=== PATIENT | female | born 1965 | race Caucasian/White ===

== ENCOUNTER 2021-11-07 17:53 | Outpatient (CLI) | payer OTHER, SELFPAY ==
--- NOTE | ~2021-11-07 | CT_ITS ---
EXAMINATION: CT sinus wo con DATE: 11/07/2021 18:22 INDICATION: Sinusitis TECHNIQUE: Computed tomography (CT) of the paranasal sinuses was performed without intravenous contra st. The dose-length product (DLP) was 329.94 mGy-cm. Iterative reconstruction was used. COMPARISON: None FINDINGS: There is normal development and pneumatization of the paranasal sinuses. There is minimal o pacification in the dependent aspect of the left sphenoid sinus. The frontal, ethmoid, and maxillary sinuses are clear. The bilateral ostiomeatal complexes are patent. Visualized soft tissues are unrema rkable. IMPRESSION: 1. Minimal opacification of the left sphenoid sinus. Reviewed, dictated and finalized at location B.
== END 2021-11-07 17:54 | disposition home or self-care (01) ==
PROVIDERS: PCP Family Medicine; Visit Provider Otolaryngology
DX: J32.9 Chronic sinusitis, unspecified (principal)
CPT/HCPCS: 70486

== ENCOUNTER 2022-01-17 07:50 | Outpatient (CLI) | payer OTHER, SELFPAY ==
--- NOTE | ~2022-01-17 | XR_ITS ---
XR hand LT 2V DATE: 01/17/2022 08:08 INDICATION: Dorsal hand and finger swelling TECHNIQUE: AP and lateral views COMPARISON: None FINDINGS: There is nonspecific soft tissue swelling. There is juxta articular osteopenia at the metac arpophalangeal and interphalangeal joints. There is narrowing at the interphalangeal joints and first metacarpophalangeal joint consistent with mild osteoarthritis. No erosive change is noted. No fracture or dislocation, periosteal reaction or bone destruction. No radiopaque soft tissue foreign body or subcutaneous emphysema. IMPRESSION: Nonspecific soft tissue swelling Mild osteoarthritis Reviewed, dictated and finalized at location A. EYOR OPERATOR
== END 2022-01-17 07:51 | disposition home or self-care (01) ==
PROVIDERS: PCP Family Medicine; Visit Provider Nurse Practitioner Family
DX: M79.89 Other specified soft tissue disorders (principal); M19.042 Primary osteoarthritis, left hand
CPT/HCPCS: 73120

== ENCOUNTER 2022-05-03 09:40 | Outpatient (CLI) | payer OTHER, SELFPAY ==
--- NOTE | ~2022-05-03 | NM_ITS ---
NUCLEAR MEDICINE CARDIAC GATED STRESS TEST: HISTORY: Hypertension. TECHNIQUE: Rest images were obtained following intravenous administration of 9.9 mCi Tc99m Tetrofosmi n. The patient was infused intravenously with Lexiscan (regadenoson). Then, 32.0 mCi Tc99m Tetrofosmi n was administered intravenously, and stress images were obtained. Data was reconstructed into short axis and horizontal and vertical long axis SPECT images. Gated SPECT images were also obtained. FINDINGS: There is an apparent small fixed defect at the cardiac apex region. No reversible lesion seen to sugg est ischemia. There is normal left ventricular wall motion. Left ventricular ejection fraction is 70%. IMPRESSION: No evidence for ischemia. Normal ejection fraction of 70%. Probable small prior myocardial infarction near the cardiac apex. Reviewed, dictated and finalized at [facility]. UNTING MANAGER CPA
--- NOTE | 2022-05-03 09:51 | EST_ITS ---
Patient Info Name: Vanessa Dennis Age: 57 years : 1965 Gender: Female Ht: 64 in Wt: 308 lbs BSA: 2.60 m2 HR: 52 bpm BP: 140 / 95 mmHg Heart Rhythm: Sinus Rhythm Exam Date: 05/03/2022 10:54 AM Exam Location: [facility] Stress Patient Status: Outpatient Admit Date: 05/03/2022 Staff Ordering Physician: Meme Paz NP Attending Provider: Glory Benjamin Exercise Technologist: Rosemary Maddox CT Exercise Physician: Sebastian Moore DO Exam Type: CA stress abelardo w NM Study Info Indications R06.02 - Shortness of breath I10 - Essential (primary) hypertension A regadenoson stress test was performed. Summary 1. 1. Negative lexiscan stress test for ischemic ST changes by ECG criteria. 2. 2. Baseline bradycardia. 3. 3. Nuclear scan to follow and will be reported separately. Please correlate with it. 4. 4. Patient informed of the above results. Protocol: Lexiscan Stress ECG Details Stage: REST Duration (min): 2 min : 45 sec HR (bpm): 52 SBP (mmHg): 140 DBP (mmHg): 95 Stage: REST Duration (min): 8 min : 26 sec HR (bpm): 47 SBP (mmHg): 140 DBP (mmHg): 95 Stage: STAGE 1 Duration (min): 1 min : 0 sec HR (bpm): 74 SBP (mmHg): 123 DBP (mmHg): 100 Stage: RECOVERY Duration (min): 1 min : 0 sec HR (bpm): 69 SBP (mmHg): 123 DBP (mmHg): 100 Stage: RECOVERY Duration (min): 2 min : 0 sec HR (bpm): 64 SBP (mmHg): 130 DBP (mmHg): 92 Stage: RECOVERY Duration (min): 2 min : 53 sec HR (bpm): 64 SBP (mmHg): 130 DBP (mmHg): 84 Rest HR: 47 bpm Peak HR: 76 bpm Rest Sys BP: 140 mmHg Peak Sys BP: 130 mmHg Max Pred HR: 164 bpm % Max Pred HR: 46 % Target HR: 139 bpm Max RPP: 9,880 bpm*mmHg Termination Reason: Completed protocol Cardiac Symptoms: Shortness of breath Total Time: 1 min : 0 sec Rest Trevino BP: 95 mmHg Peak Trevino BP: 92 mmHg Total Dose: 0.4 mg Resting ECG Sinus bradycardia, borderline ST -T wave in inferior leads. Stress ECG No ST changes. Arrhythmias None. Report Signatures
== END 2022-05-03 09:41 | disposition home or self-care (01) ==
PROVIDERS: PCP Family Medicine; Visit Provider Nurse Practitioner Family
DX: R06.02 Shortness of breath (principal); R00.1 Bradycardia, unspecified; I10 Essential (primary) hypertension
CPT/HCPCS: 78452; 93017; A9502; J2785

== ENCOUNTER → 2022-05-25 13:07 | Outpatient (CLI) | payer OTHER, SELFPAY ==
--- NOTE | ~2022-05-25 | MM_ITS ---
EXAMINATION: MM screening venus BI w ernesto HISTORY: Screening TECHNIQUE: Craniocaudal and mediolateral oblique 3-D tomosynthesis images were obtained and synthetic 2-D images were generated. CAD analysis was submitted and interpreted. COMPARISON: 02/03/2013 BREAST PARENCHYMAL COMPOSITION: The breasts are almost entirely fatty. FINDINGS: There is no evidence of suspicious mass, calcification, or architectural distortion to sugg est malignancy in either breast. There has been no suspicious interval change. IMPRESSION: 1. No mammographic evidence of malignancy. 2. Recommend routine screening mammography in one year. BI-RADS Category 1: Negative Reviewed, dictated and finalized at location A.
--- NOTE | ~2022-05-25 | DEXA_ITS ---
Bone Density Report Name: MARCOS READ Age: 57 Sex: Female Ethnicity: White Date of : 1965 Indication: postmenopausal; screening for osteoporosis; asthma or emphysema; Referring Provider: MARIN WILLAMS Study: Bone densitometry was performed. Exam Date: May 25, 2022 Accession number: [id number] Bone Density: Region BMD T-score Z-score Classification AP Spine (L1, L2, L3) 0.930 -0.8 0.3 Normal Femoral Neck (Left) 0.785 -0.6 0.5 Normal Total Hip (Left) 0.967 0.2 1.0 Normal Femoral Neck (Right) 0.827 -0.2 0.9 Normal Total Hip (Right) 0.992 0.4 1.2 Normal Total Hip Mean 0.980 0.3 1.1 Normal World Health Organization criteria for BMD impression classify patients as: Normal (T-score at or above -1.0), Osteopenia (T-score between -1.0 and -2.5), or Osteoporosis (T-score at or below -2.5). 10-year Fracture Risk: FRAX not reported because: All T-scores for Spine Total, Hip Total, Femoral Neck at or above -1.0 Clinical Information Provided by Patient: Has used the following medications: Vitamin D, Calcium Has the following medical conditions: Asthma or Emphysema Patient maximum height was 64 Menopause Age: 55 No regular weight bearing exercise Drinks caffeinated beverages Onset of menses at age 14 Number of children 2 Impression: The patient has normal bone mass. Discussion: BONE DENSITY IS ABOVE THE MINIMUM DESIRABLE LEVEL AT ALL SKELETAL SITES TESTED. This patient?s bone mineral density is above the minimum desirable level (T-score -1.0 or better) at all sites measured. The patient should follow a healthful lifestyle (good nutrition with adequate calcium and vitamin D, and appropriate weight-bearing exercise). Follow-Up: Consider repeating this study in 5 years or sooner if there is some new clinical indication. Reported by: DIETER on 05/25/2022 1:42:00 PM. Reviewed, dictated and finalized at location ADi SMITH
== END ==
PROVIDERS: PCP Family Medicine; Visit Provider Advanced Practice Midwife
DX: Z12.31 Encounter for screening mammogram for malignant neoplasm of breast (principal); M85.88 Other specified disorders of bone density and structure, other site
CPT/HCPCS: 77063; 77067; 77080

== ENCOUNTER 2022-07-29 14:30 | Emergency (ER) | payer OTHER, SELFPAY ==
--- NOTE | ~2022-07-29 | XR_ITS ---
EXAMINATION: XR chest 2V DATE: 07/29/2022 15:06 INDICATION: Shortness of breath TECHNIQUE: PA and lateral views of the chest were obtained. COMPARISON: Chest radiograph dated 11/23/2009 FINDINGS: The lungs remain clear with no focal airspace opacities, pulmonary edema, pleural effusion or pneumot horax. The cardiomediastinal silhouette is normal. Mild upper thoracic levocurvature with mild spondy losis. IMPRESSION: 1. No acute cardiopulmonary disease. Reviewed, dictated and finalized at location A.
--- NOTE | 2022-07-29 14:34 | ED.SOB ---
HPI - SOB/Dyspnea General Chief Complaint: Shortness of Breath/Dyspnea Stated Complaint: Shortness of Breath Time Seen by Provider: 07/29/22 14:35 Source: patient Mode of arrival: ambulatory Limitations: no limitations History of Present Illness HPI Narrative: Vanessa is a 57-year-old male patient presenting to the clinic today with complaints of shortness of breath, chest heaviness, and cough. She reports this has been going on for approximately 2 weeks. Was seen last week and placed on prednisone and azithromycin. States she has a history of asthma and thought that her asthma was flaring. States she is having increase in shortness of breath, chest heaviness, fatigue, unable to lay flat, and a cough. Reports that she finished her medicine and is not feeling any better. Has been taking at home nebulizer treatments without relief. Related Data Home Medications Medication Instructions Recorded Confirmed albuterol sulfate 1.25 mg/3 mL 1.25 mg inhalation Q4-6H PRN 06/19/21 07/29/22 solution for nebulization Shortness Of Breath Or Wheezing calcium carbonate 600 mg calcium 600 mg PO BID 06/19/21 07/29/22 (1,500 mg) tablet (Calcium) cetirizine 10 mg capsule (All Day 10 mg PO DAILY PRN Shortness Of 06/19/21 07/29/22 Allergy (cetirizine)) Breath Or Wheezing cyanocobalamin (vitamin B-12) 3,000 mcg PO DAILY 06/19/21 07/29/22 3,000 mcg capsule ergocalciferol (vitamin D2) 1,250 1,250 mcg PO WEEKLY 06/19/21 07/29/22 mcg (50,000 unit) capsule ferrous sulfate 140 mg (45 mg 140 mg PO DAILY 06/19/21 07/29/22 iron) tablet,extended release fluticasone propionate 50 1 spray intranasal DAILY 06/19/21 07/29/22 mcg/actuation nasal spray,suspension multivitamin 1 tablet PO DAILY 06/19/21 07/29/22 propylene glycol 0.6 % eye drops 1 drp EACH EYE DAILY PRN Shortness 06/19/21 07/29/22 (Systane Balance) Of Breath Or Wheezing black cohosh 540 mg capsule 20 mg PO DAILY 02/14/22 07/29/22 Allergies Allergy/AdvReac Type Severity Reaction Status Date / Time buprenorphine [From Buprenex] Allergy Intermediate hives, Verified 07/29/22 14:41 itching, vomitting Sulfa (Sulfonamide Allergy Unknown Unknown Verified 07/29/22 14:41 Antibiotics) sulfanilamide Allergy Unknown Unknown Verified 07/29/22 14:41 Review of Systems Review of Systems: Pertinent positives per HPI. Patient denies any fever, chills, rash, headache, visual changes, dizziness, cough, shortness of breath, chest pain, palpitations, nausea, vomiting, diarrhea, constipation, abdominal pain, or any urinary issues. [facility]LY [facility] Past Medical History Medical History Anemia COVID Fracture GERD (gastroesophageal reflux disease) Headache Hx of blood clots Vitamin D deficiency Surgical History Surgical History History of removal of ovarian cyst 1986 Hx laparoscopic cholecystectomy 1990 Hx of hernia repair 2015, 2019 Hx of right knee surgery 1986 Hx of tonsillectomy 1974 Hx of tubal ligation 2012 Family History Family History Sibling Uterine cancer Carcinoma of kidney Breast cancer Sibling Malignant neoplasm of prostate Heart disease Acute myocardial infarction Sibling Breast cancer Grandparent Diabetes mellitus Mother Cerebrovascular accident Daughter Depression Father No problems noted. Other Family history of arthritis Hypertension Social History Social History Smoking status: Never smoker Second hand tobacco smoke exposure: Yes Alcohol intake: current Alcohol use details: 2 per month Substance use: never Substance use type: does not use Lack of Transportation: No Lack of Food: Never True Current Housing: I Have Housing Concerned About
[2022-07-29 14:39] VITALS: BP 124/71; PULSE 60; RESP 20; TEMP 37.1; O2SAT 99
[2022-07-29] MEDS: IPRATROPIUM BR 0.02% INH SOLN 0.5 MG/2.5 ML VIAL INHALATION (14:41)
[2022-07-29] MEDS: ALBUTEROL SULFATE NEB 2.5 MG/3 ML INH INHALATION (14:41)
--- NOTE | 2022-07-29 14:49 | ECG_ITS ---
Measurements Intervals Newcomb Rate: 59 P: 18 SC: 163 QRS: -12 QRSD: 92 T: 24 QT: 429 QTc: 427 Interpretive Statements SINUS BRADYCARDIA POSSIBLE LEFT VENTRICULAR HYPERTROPHY BASELINE ARTIFACT- II, III, AVL, AVF BORDERLINE ECG NO PREVIOUS ECG AVAILABLE FOR COMPARISON Electronically Signed On 07-31-2022 15:38:58 CDT by Sebastian Moore D.O.
[2022-07-29 15:00] VITALS: O2SAT 99
--- NOTE | 2022-07-29 16:06 | PC.NURSE ---
Cardiovascular assessment normal. Patient in no cardiac distress. EKG shows no acute WI. Patient reports shortness of breath. Breathing treatment given- patient states she feels much better. No other issues at this time.
[2022-07-29 16:08] VITALS: O2SAT 99
== END 2022-07-29 16:00 | disposition home or self-care (01) ==
PROVIDERS: Emergency Provider Nurse Practitioner Family; PCP Family Medicine
DX: J45.901 Unspecified asthma with (acute) exacerbation (principal); K21.9 Gastro-esophageal reflux disease without esophagitis; E55.9 Vitamin D deficiency, unspecified
CPT/HCPCS: 71046; 93005; 94640; 99213; G0463

== ENCOUNTER 2023-02-09 13:28 | Emergency (ER) | payer OTHER, SELFPAY ==
--- NOTE | ~2023-02-09 | XR_ITS ---
EXAMINATION: XR chest 2V Exam Date/Time: 02/09/2023 14:41 RAT BREEDER HISTORY: cough Comparison: 07/21/2022. RESULT: Lines, tubes, and devices: None. Lungs and pleura: Minimal posterior costophrenic angle blunting, otherwise clear. Cardiomediastinal silhouette: Stable. Other: No acute osseous or upper abdominal finding. IMPRESSION: Possible trace bilateral pleural effusions. Reviewed, dictated and finalized at location K. BREEDER
[2023-02-09 14:03] VITALS: BP 147/89; PULSE 57; RESP 20; TEMP 37.5; O2SAT 97
--- NOTE | 2023-02-09 14:38 | ED.URI ---
HPI - URI/Sore Throat General Chief Complaint: Upper Respiratory Infection Stated Complaint: cough,congestion Source: patient Mode of arrival: ambulatory Limitations: no limitations History of Present Illness HPI Narrative: 58 y/o female with hx asthma presented for c/o worsening cough for 5 days. Also reports starting to feel shortness of breath with talking, and has sinus congestion, body aches, chills. Using albuterol and nebulizer since onset and started Mucinex, Nyquil and Dayquil. Tested negative for covid 2 days ago. Related Data Home Medications Medication Instructions Recorded Confirmed calcium carbonate 600 mg calcium 600 mg PO BID 06/19/21 02/09/23 (1,500 mg) tablet (Calcium) cyanocobalamin (vitamin B-12) 3,000 mcg PO DAILY 06/19/21 02/09/23 3,000 mcg capsule ergocalciferol (vitamin D2) 1,250 1,250 mcg PO WEEKLY 06/19/21 02/09/23 mcg (50,000 unit) capsule ferrous sulfate 140 mg (45 mg 140 mg PO DAILY 06/19/21 02/09/23 iron) tablet,extended release fluticasone propionate 50 1 spray intranasal DAILY 06/19/21 02/09/23 mcg/actuation nasal spray,suspension multivitamin 1 tablet PO DAILY 06/19/21 02/09/23 propylene glycol 0.6 % eye drops 1 drp EACH EYE DAILY PRN Shortness 06/19/21 02/09/23 (Systane Balance) Of Breath Or Wheezing black cohosh 540 mg capsule 20 mg PO DAILY 02/14/22 02/09/23 fexofenadine 180 mg tablet 180 mg PO DAILY 08/01/22 02/09/23 ([facility] Allergy) Allergies Allergy/AdvReac Type Severity Reaction Status Date / Time buprenorphine [From Buprenex] Allergy Intermediate hives, Verified 02/09/23 14:33 itching, vomitting Sulfa (Sulfonamide Allergy Unknown Unknown Verified 02/09/23 14:33 Antibiotics) sulfanilamide Allergy Unknown Unknown Verified 02/09/23 14:33 Review of Systems Review of Systems: CONSTITUTIONAL: Denies body aches, fever, chills, or sweats. EYES: Denies visual changes, redness, or discharge. ENT: Reports rhinorrhea, congestion, Denies sore throat, or otalgia. CARDIOVASCULAR: Denies chest pain, palpitations, or edema. RESPIRATORY: Reports cough, sob, denies wheezing. GASTROINTESTINAL: Denies abdominal pain, nausea, vomiting, or diarrhea. GENITOURINARY: Denies dysuria or hematuria. SKIN: Denies rash, itching, or wounds. MUSCULOSKELETAL: Denies back pain, joint pain, or myalgia. NEUROLOGIC: Denies headache, numbness, tingling, or weakness. All systems reviewed & are unremarkable except as noted in HPI and below PMFSH Past Medical History Medical History Anemia COVID Fracture GERD (gastroesophageal reflux disease) Headache Hx of blood clots Vitamin D deficiency Surgical History Surgical History History of removal of ovarian cyst 1986 Hx laparoscopic cholecystectomy 1990 Hx of hernia repair 2016, 2019 Hx of right knee surgery 1986 Hx of tonsillectomy 1974 Hx of tubal ligation 2012 Family History Family History Sibling Uterine cancer Carcinoma of kidney Breast cancer Sibling Malignant neoplasm of prostate Heart disease Acute myocardial infarction Sibling Breast cancer Grandparent Diabetes mellitus Mother Cerebrovascular accident Daughter Depression Father No problems noted. Other Family history of arthritis Hypertension Social History Social History Smoking status: Never smoker Second hand tobacco smoke exposure: Yes Alcohol intake: current Alcohol use details: 2 per month Substance use: never Substance use type: does not use Lack of Transportation: No Lack of Food: Never True Current Housing: I Have Housing Concerned About Future Housing: No Difficulty Paying Gas/Electric Bills: No Difficulty Paying for Meds: No Currently Un
== END 2023-02-09 15:30 | disposition home or self-care (01) ==
PROVIDERS: Emergency Provider Nurse Practitioner Family; PCP Family Medicine
DX: J40 Bronchitis, not specified as acute or chronic (principal); K21.9 Gastro-esophageal reflux disease without esophagitis; E55.9 Vitamin D deficiency, unspecified; Z86.16 Personal history of COVID-19
CPT/HCPCS: 71046; 99213; G0463

== ENCOUNTER 2023-05-20 11:30 | Outpatient (CLI) | payer OTHER, SELFPAY ==
[2023-05-20 12:46] LABS: Influenza A QL RT-PCR Negative (Negative); Influenza B QL RT-PCR Positive (Negative); RSV RNA, RT-PCR Negative (Negative); SARS-CoV-2 RNA PCR Negative (Negative)
== END 2023-05-20 11:31 | disposition home or self-care (01) ==
LOC: ANHLAB 11:31
PROVIDERS: PCP Family Medicine; Visit Provider Physician Assistant
DX: Z20.822 Contact with and (suspected) exposure to COVID-19 (principal)
CPT/HCPCS: 87637

== ENCOUNTER 2023-05-29 09:10 | Outpatient (CLI) | payer OTHER, SELFPAY ==
--- NOTE | 2023-06-01 20:58 | WPDPFTINT ---
PFT Procedure Performed PFT Procedure Performed Spirometry with Pre/Post Bronchodilator Plethysmography (Lung Vol) Diffusing Cap (DLCO) Flow Vol Loop PFT Interpretation DOS: 05/29/2023 REQUESTING: Sonia Astudillo PA-C REASON FOR TESTING: Asthma PULMONARY FUNCTION TESTS As of May 31, 2022, the Global Lung Initiative reference equations are used in interpretation of spirometry, lung volumes and diffusing capacity. Race and ethnicity are not included as variables in the interpretation strategy. Spirometry: The pre-bronchodilator FEV1 is 2.83 L, 109% predicted, normal. The pre-bronchodilator FVC is 3.93 L, 120%, normal. The FEV1/FVC ratio is 72%, normal. After bronchodilator, the FEV1 is 109%, 2.83 L, no change. The FVC is 115% predicted, 3.78 L, a 4% drop. The FEV1/FVC ratio is 75%. This is a non statistically significant change after bronchodilator. Lung volumes: The total lung capacity is 6.01 L, 118%, normal. The residual volume is 2.08 L, 108%, normal. The RV/TLC is 35%, normal. Airway resistance is 1.50, 58%. Diffusion: DLCO is 20.2, 92%, normal. The DLCO/VA is 4.09, 91%, normal. Flow volume loop: The flow volume loop is significant for absence of a peak during the expiratory limb. IMPRESSION: This study shows normal spirometry without airflow obstruction, normal lung volumes and normal diffusion. No prior studies for comparison. Kacie Cooper MD
== END 2023-05-29 09:11 | disposition home or self-care (01) ==
PROVIDERS: PCP Family Medicine; Visit Provider Physician Assistant
DX: J45.909 Unspecified asthma, uncomplicated (principal)
CPT/HCPCS: 94060; 94726; 94729

== ENCOUNTER 2023-06-03 07:11 | Outpatient (CLI) | payer OTHER, SELFPAY ==
--- NOTE | ~2023-06-03 | CT_ITS ---
EXAMINATION:CT diagnostic chest wo con DATE: 06/03/2023 08:03 INDICATION: Chronic bronchitis. TECHNIQUE: Computed tomography (CT) of the chest was performed without intravenous contrast. Automate d exposure control and iterative reconstruction technique were employed. The dose-length product (DLP ) was 856.95 mGy-cm. COMPARISON: None. FINDINGS: There is minimal atelectasis in left lung. There is a 3 mm nodule in left upper lobe, likel y benign. No pleural effusion. Cardiomegaly is noted. No pericardial effusion. There is a small slidi ng hiatal hernia. There are changes of cholecystectomy. There is a supraumbilical ventral hernia cont aining a wall of small bowel. There is mild thoracic spondylosis. IMPRESSION: 1. Small sliding hiatal hernia. 2. Supraumbilical ventral hernia containing a wall of nonobstructed small bowel. Reviewed, dictated and finalized at location A. IMPRESSION: 1. Small sliding hiatal hernia. 2. Supraumbilical ventral hernia containing a wall of nonobstructed small bowel .
== END 2023-06-03 07:12 | disposition home or self-care (01) ==
PROVIDERS: PCP Family Medicine; Visit Provider Physician Assistant
DX: J45.909 Unspecified asthma, uncomplicated (principal); J20.9 Acute bronchitis, unspecified; K44.9 Diaphragmatic hernia without obstruction or gangrene; K43.9 Ventral hernia without obstruction or gangrene
CPT/HCPCS: 71250

== ENCOUNTER 2023-10-21 09:31 | Outpatient (CLI) | payer OTHER, SELFPAY ==
--- NOTE | ~2023-10-21 | XR_ITS ---
XR knee LT min 4V Ordering provider: CR Alvarez History: . M25.569 - Pain in unspecified knee, GENERAL PAIN, NO INJURY . Comparison: July 27, 2011 FINDINGS: BONES: No acute fracture or dislocation. Old chip fracture in the area adjacent to the lateral tibial plateau is seen. Severe osteoarthritic changes of the patellofemoral joint. JOINT SPACES: Osteoarthritic changes with marginal spurs. SOFT TISSUES: Normal. IMPRESSION: No acute osseous abnormality left knee. Severe osteoarthritic changes of the patellofemoral joint. Mild osteoarthritic changes of the knee darin int Reviewed, dictated and finalized at location A. IMPRESSION: No acute osseous abnormality left knee. Severe osteoarthritic changes of the patellofemoral joint. Mild osteoarthritic changes of the knee joint
[2023-10-21 11:55] LABS: Vitamin D 25 Hydroxy 55.9 ng/mL
== END 2023-10-21 09:32 | disposition home or self-care (01) ==
PROVIDERS: PCP Family Medicine; Visit Provider Nurse Practitioner Family
DX: E55.9 Vitamin D deficiency, unspecified (principal); M17.12 Unilateral primary osteoarthritis, left knee
CPT/HCPCS: 36415; 73564; 82306

== ENCOUNTER 2023-11-21 11:42 | Outpatient (CLI) | payer OTHER, SELFPAY ==
--- NOTE | ~2023-11-21 | MM_ITS ---
EXAMINATION: MM screening venus BI w ernesto HISTORY: Screening mammogram, family history of breast cancer in her sister. TECHNIQUE: Craniocaudal and mediolateral oblique 3-D tomosynthesis images were obtained and synthetic 2-D images were generated. CAD analysis was submitted and interpreted. COMPARISON: 05/25/2022 BREAST PARENCHYMAL COMPOSITION:Not Dense. The breasts are almost entirely fatty FINDINGS: No suspicious mass, calcification, or architectural distortion are identified in either carlos ast to suggest malignancy. There has been no suspicious interval change. IMPRESSION: No mammographic evidence of malignancy. Recommend routine screening mammography in one year. BI-RADS Category 1: Negative Reviewed, dictated and finalized at location .
--- NOTE | ~2023-11-21 | XR_ITS ---
XR ribs BI 3V w CXR 2V Ordering provider: CR Alvarez History: . R07.81 - Pleurodynia . Comparison: None. FINDINGS: BONES: No acute rib fracture. MEDIASTINUM: The cardiac silhouette is not enlarged. LUNGS: No effusions or infiltrates. No pneumothorax. SOFT TISSUES: Normal. IMPRESSION: No acute osseous abnormality of the bilateral ribs. Reviewed, dictated and finalized at location A.
== END 2023-11-21 11:43 | disposition home or self-care (01) ==
LOC: MICIMG 11:43
PROVIDERS: PCP Family Medicine; Visit Provider Nurse Practitioner Family
DX: Z12.31 Encounter for screening mammogram for malignant neoplasm of breast (principal); R07.81 Pleurodynia
CPT/HCPCS: 71046; 71110; 77063; 77067

== ENCOUNTER 2024-09-30 09:44 | Outpatient (CLI) | payer OTHER, SELFPAY ==
--- OUTSIDE RECORDS SUMMARY | 2024-09-30 10:09 | XMS_ITS | Referral Summary ---
Author Organization [facility] Address [address] [place] [id number] Care Team Providers Care Water Resource Consultant Name Role Phone Tristen Porras MD Primary Care Provider [phone] Allergies Active Allergy Reactions Criticality Noted Date Comments Buprenorphine Hives Medium 08/12/2015 Phenylalanine Headache High 05/29/2021 Migraines Sulfa (Sulfonamide Antibiotics) Hives,Itching Medium Sulfasalazine Hives Medium 09/09/2017 Medications montelukast (SINGULAIR) 10 mg tablet 1 tablet (10 mg total) nightly [address] (PROTONIX) 40 mg EC tablet Take 1 tablet (40 mg total) by mouth nightly Active citalopram (CeleXA) 20 mg tablet Take 1 tablet (20 mg total) by mouth nightly Active dilTIAZem (CARDIZEM) 60 mg tablet Take 1 tablet (60 mg total) by mouth 4 (four) times a day Active fluticasone (FLOVENT HFA) 110 mcg/actuation inhaler Inhale 1 puff 2 (two) times a day Rinse mouth with water after use to reduce aftertaste and incidence of candidiasis. Do not swallow. Active albuterol (PROVENTIL,VENT HOMAR) 2.5 mg /3 mL (0.083 %) nebulizer solution 8 Active albuterol HFA (PROVENTIL HFA,VENTOLIN HFA,PROAIR HFA) 90 mcg/actuation inhaler Inhale 2 puffs 4 (four) times a day. 1 Inhaler 8 Active iron bisgly,ps-FA-B- C#12-succ 65 mg-65 mg -1,000 mcg (24) tablet Take by mouth Active cyanocobalamin (Vitamin B-12) 1,000 mcg tabletIndicatio ns:Prevention of Vitamin B12 Deficiency Take 1 tablet (1,000 mcg total) by mouth daily Active multivitamin capsule Take 1 capsule by mouth daily Active NOT IN DATABASE, PRESCRIPTION, CPAP 9 Active ipratropium-alb uteroL (DUO-NEB) 0.5-2.5 mg/3 mL nebulizer solution 3 Active calcium carbonate (OS-EARL) 1,250 mg (500 mg elemental) tablet Take 1 tablet (1,250 mg total) by mouth daily Active meloxicam (MOBIC) 15 mg tablet 3 Active ergocalciferol (VITAMIN D) 50,000 unit capsule Take 1 capsule (50,000 Units total) by mouth once a week 9 Active Active Problems Problem Noted Date Diagnosed Date Primary hypertension 02/28/2021 Primary insomnia 09/08/2020 Deep vein thrombosis (DVT) of lower extremity Menopause 08/13/2018 Pulmonary embolism 01/23/2018 Assessment & Plan (02/14/2018 12:44 PM MANAGER CASE): Diagnosed on 01/23/[address] chest (previous hospitalization) - continue therapeutic Lovenox Assessment & Plan (01/29/2018 11:06 AM MANAGER CASE): On therapeutic lovenox. - 01/27: therapeutic anti-Xa Will discharge home on therapeutic Lovenox BID until Dr. Brown feels it is OK to transition to oral anticoagulation. Her PCP office is aware of the PE and she will follow up with her PCP when discharged home. Class 3 severe obesity due to excess calories in adult 09/03/2017 Depression with anxiety 01/03/2015 SHERYL (obstructive sleep apnea) 11/30/2013 Vitamin B12 deficiency 09/11/2012 Irritable bowel syndrome 08/15/2012 Migraine 02/28/2012 Resolved Problems Problem Noted Date Diagnosed Date Resolved Date Foot pain, left 02/28/2021 09/06/2022 Chronic arthralgias of knees and hips 09/08/2020 09/06/2022 Keratosis 09/08/2020 09/06/2022 Ventral hernia without obstr uction or gangrene 06/18/2019 09/06/2022 Overview (06/18/2019): Added automatically from request for surgery [id number] Hair loss 05/06/2018 09/06/2022 Pain in both lower extremities 05/06/2018 09/06/2022 Cellulitis 04/15/2018 09/06/2022 Flank pain, acute 02/14/2018 09/06/2022 Back pain 02/14/2018 09/06/2022 Assessment & Plan (02/18/2018 8:29 AM MANAGER CASE): - suspected UTI & kidney stone -CT kidney stone protocol = findings concerning for pyelonephritis Urinary tract infection 02/14/201808/2022 Assessment & Plan (02/18/2018 8:31 AM MANAGER CASE): Diagnosed by her PCP & started on Cipro, initially on cefepime - UA & urine for culture -> no significant growth Converted to Macrobid x 5 days (total 7 days of antibiotics), WBC 8.0 on discharge & symptoms resolved SOB (shortness of breath) 01/23/2018 Assessment & Plan (01/26/2018 4:50 PM MANAGER CASE): Patient became acutely SOB on the morning of 01/23. Transferred to SICU. Diagnosed with PE. SOB now resolved. -CTM. Okay to transfer to floor Acute hypoxemic respiratory failure 01/23/2018 09/06/2022 Assessment & Plan (01/27/2018 10:47 AM MANAGER CASE): -weaned from 4 liters to 1 liter today -CXR without pulm edema 01/[address]: Pulmonary embolism in the right middle lobe pulmonary artery. Started on Lovenox BID therapeutic dosing. GVB wants her to discharge home on therapeutic Lovenox. Oliguria 01/22/2018 09/06/2022 Assessment & Plan (01/26/2018 4:50 PM MANAGER CASE): Low UOP o/n 01/20: cr 0.6-> 1.10, 500 mL bolus, increase IVF, f/u afternoon BMP 01/21 01/22: recheck BMP, urine electrolytes, flush Velázquez 01/23: IVF decreased due to SOB and possible pulm edema. UOP relatively unchanged. Resolved Acute postoperative pain 01/21/201808/2022 Assessment & Plan (01/29/2018 11:01 AM MANAGER CASE): -Epidural placed 01/20 -Dilaudid JACQUARD TWINE POLISHER OPERATOR -PO oxycodone, scheduled tylenol Low urine output 01/21/2018 01/22/2018 Assessment & Plan (01/21/2018 9:06 AM MANAGER CASE): Low UOP o/n 01/20: cr 0.6-> 1.10, 500 mL bolus, increase IVF, f/u afternoon BMP 01/21 Allergic rhinitis 09/09/2017 09/06/2022 Hearing deficit 08/02/2017 09/06/2022 Abdominal pain 10/24/2015 09/06/2022 Hernia of anterior abdominal wall 10/24/2015 09/06/2022 Overview (01/21/2018): S/p open ventral hernia repair / panniculectomy (01/20 [facility]) Assessment & Plan (01/29/2018 11:03 AM MANAGER CASE): 01/20: VHR, midline incison. SAUL R x1 SQ, SAUL L x1 SQ -NGT, IVFs 01/21: pain well-controlled, dressing with minimal shadowing, R SAUL 225 serosang / L SAUL 40 serosang / NG 15 thin bilious 01/22: pain well controlled, dressing to come down today, SAUL #1 476 ml, SUAL #2 106 ml, NGT 100 ml 01/23: pain well-controlled, unchanged SAUL output 01/25: +BMs, CLD 01/26: ADAT to fiber restricted, PO meds, electrolytes repleted 01/28 continues to have some nausea overnight and has no appetite. KUB pending. No BM recently, will give senna BID and a dulcolax suppository. 01/29: flatus(+), BM(+) last night. Minimal appetite, but eating small meals. She feels well today and will discharge home taking small frequent meals. She feels comfortable with this plan. Her low transverse incision is clean, catarino/sutures, no drainage, no erythema. SAUL x2. She will follow up with Dr. Brown on February 07. Anemia 11/10/2013 09/06/2022 Overview (09/06/2022): Last Assessment & Plan: - hgb of 6.9 02/16, s/p 1U pRBCs with appropriate response to 7.8 - no s/s active bleeding, likely a dilutional drop Assessment & Plan (02/18/2018 8:30 AM MANAGER CASE): - hgb of 6.9 02/16, s/p 1U pRBCs with appropriate response to 7.8 - no s/s active bleeding, likely a dilutional drop Bradycardia 11/06/2013 09/06/2022 Asthma 08/15/2012 09/06/2022 Esophagitis, reflux 08/15/2012 09/07/19 23 S/P repair of ventral hernia 09/06/2022 Assessment & Plan (02/18/2018 8:32 AM MANAGER CASE): S/P VHR on 2018 - continue SAUL to bulb suction, 135 mL output on 02/17 will keep in - ABD to lower transverse abdominal incision Social History Tobacco Use Types Packs/Day Years Used Date Smoking Tobacco: Never Smokeless Tobacco: Never Tobacco Cessation:Counseling Given: Not Answered Alcohol Use Standard Drinks/Week Comments Yes 1 (1 standard drink = 0.6 oz pur e alcohol) rare Comments No Sex and Gender Information Value Date Recorded Sex Assigned at Not on file Legal Sex Female 3:53 AM MANAGER CASE Gender Identity Not on file Sexual Orientation Not on file Last Filed Vital Signs Vital Sign Reading Time Taken Comments Blood Pressure 151/82 03/31/2024 10:22 AM MANAGER CASE Pulse 59 03/31/2024 10:22 AM MANAGER CASE Temperature 36.7 C (98.1 F) 03/31/2024 10:22 AM MANAGER CASE Respiratory Rate 16 03/31/2024 10:2 2 AM MANAGER CASE Oxygen Saturation 94% 03/31/2024 10: 22 AM MANAGER CASE Inhaled Oxygen Concentration - - Weight 140.3 kg (309 lb 3.2 oz) 025 10:22 AM MANAGER CASE Height 162.6 cm (5' 4) 03/31/2024 10:2 2 AM MANAGER CASE Body Mass Index 53.07 03/31/2024 10:22 AM MANAGER CASE Plan of Treatment Not on file Medical Devices Implanted Type Area Charter Coach Driver Device Identifier Shelf Expiration Date Model / Serial / Lot [employer] R Bard [id number] Ventralight St Sepra 10x8in Uncoated Monofilament Lightweight - [id number] - [id number] Implanted:Qty: 1 on 2018 by Karan Brown MD at [facility] Mesh N/A: Abdomen [employer] [id number] 12/29/2018 [id number] / [id number] / [id number] Insurance [facility] Advance Directives For more information, please contact: [phone] * Full Code (Latest Code Status on File) Date Activated Date Inactivated Comments 02/14/2018 12:48 PM 02/18/2018 2:29 PM * Full Code Date Activated Date Inactivated Comments 2018 5:37 PM 01/29/2018 6:53 PM Care Teams Water Resource Consultant Relationship Specialty Start Date End Date Tristen Porras MD PCP - General Family Medicine 05/23/22
--- OUTSIDE RECORDS SUMMARY | 2024-09-30 10:09 | XMS_ITS | Encounter Summary ---
Author Organization [facility] Address [address] [place] [address] Phone Care Team Providers Care Mines Inspector Name Role Phone Benny Armstrong MD Primary Care Provider Tristen Porras MD Primary Care Provider [phone] Encounter Details Date Type Department Care Team (Latest Contact Info) Description 05/03/2022 Orders Only [facility] Scanning, Provider Social History Tobacco Use Types Packs/Day Years Used Date Smoking Tobacco: Never Smokeless Tobacco: Never Alcohol Use Standard Drinks/Week Comments Yes 1 (1 standard drink = 0.6 oz pur e alcohol) rare Comments No Sex and Gender Information Value Date Recorded Sex Assigned at Not on file Legal Sex Female 3:53 AM BLOOD BANK ATTENDANT Gender Identity Not on file Sexual Orientation Not on file documented as of this encounter Plan of Treatment Not on file documented as of this encounter Procedures Procedure Name Priority Date/Time Associated Diagnosis Comments CARDIOLOGY DOCUMENT SCAN 05/03/2022 documented in this encounter Results * CARDIOLOGY DOCUMENT SCAN (05/03/2022) Anatomical Region Laterality Modality Other us Provider Scanning CV CARDIAC SERVICES PROCEDURES Final Result documented in this encounter Visit Diagnoses Not on filedocumented in this encounter Care Teams Mines Inspector Relationship Specialty [place] [address] [place] [address] PCP - General Internal Medicine 04/04/18 05/22/22 [place] [address] [place] [address] PCP - General Family Medicine 05/23/22 documented as of this encounter
--- OUTSIDE RECORDS SUMMARY | 2024-09-30 10:09 | XMS_ITS | Clinical Summary ---
Author Organization [facility] Address [address] [place] [address] Care Team Providers Care Data Modeler Name Role Phone Tristen Porras MD Primary Care Provider [phone] Allergies Active Allergy Reactions Criticality Noted Date [...] 01/23/2018 Assessment & Plan (02/14/2018 12:44 PM GATHERING WORKER): Diagnosed on 01/23/[address] chest (previous hospitalization) - continue therapeutic Lovenox Assessment & Plan (01/29/2018 11:06 AM GATHERING WORKER): On therapeutic lovenox. - 01/27: therapeutic anti-Xa [...] (06/18/2019): Added automatically from request for surgery [id number] Hair loss 05/06/2018 09/06/2022 Pain in both lower extremities 05/06/2018 09/06/2022 Cellulitis 04/15/2018 09/06/2022 Flank pain, acute 02/14/2018 09/06/2022 Back pain 02/14/2018 09/06/2022 Assessment & Plan (02/18/2018 8:29 AM GATHERING WORKER): - suspected UTI & kidney stone -CT kidney stone protocol = findings concerning for pyelonephritis Urinary tract infection 02/14/201808/2022 Assessment & Plan (02/18/2018 8:31 AM GATHERING WORKER): Diagnosed by her PCP & started on Cipro, initially on cefepime - UA & urine for culture -> no significant growth Converted to Macrobid x 5 days (total 7 days of antibiotics), WBC 8.0 on discharge & symptoms resolved SOB (shortness of breath) 01/23/2018 Assessment & Plan (01/26/2018 4:50 PM GATHERING WORKER): Patient became acutely SOB on the morning of 01/23. Transferred to SICU. Diagnosed with PE. SOB now resolved. -CTM. Okay to transfer to floor Acute hypoxemic respiratory failure 01/23/2018 09/06/2022 Assessment & Plan (01/27/2018 10:47 AM GATHERING WORKER): -weaned from 4 liters to 1 liter today -CXR without pulm edema 01/[address]: Pulmonary embolism in the right middle lobe pulmonary artery. Started on Lovenox BID therapeutic dosing. GVB wants her to discharge home on therapeutic Lovenox. Oliguria 01/22/2018 09/06/2022 Assessment & Plan (01/26/2018 4:50 PM GATHERING WORKER): Low UOP o/n 01/20: cr 0.6-> 1.10, 500 mL bolus, increase IVF, f/u afternoon BMP 01/21 01/22: recheck BMP, urine electrolytes, flush Velázquez 01/23: IVF decreased due to SOB and possible pulm edema. UOP relatively unchanged. Resolved Acute postoperative pain 01/21/201808/2022 Assessment & Plan (01/29/2018 11:01 AM GATHERING WORKER): -Epidural placed 01/20 -Dilaudid HEALTH CARE ASSISTANT -PO oxycodone, scheduled tylenol Low urine output 01/21/2018 01/22/2018 Assessment & Plan (01/21/2018 9:06 AM GATHERING WORKER): Low UOP o/n 01/20: cr 0.6-> 1.10, 500 mL bolus, increase IVF, f/u afternoon BMP 01/21 Allergic rhinitis 09/09/2017 09/06/2022 Hearing deficit 08/02/2017 09/06/2022 Abdominal pain 10/24/2015 09/06/2022 Hernia of anterior abdominal wall 10/24/2015 09/06/2022 Overview (01/21/2018): S/p open ventral hernia repair / panniculectomy (01/20 [facility]) Assessment & Plan (01/29/2018 11:03 AM GATHERING WORKER): 01/20: VHR, midline incison. SAUL R x1 SQ, SAUL L x1 SQ -NGT, IVFs 01/21: pain well-controlled, dressing with minimal shadowing, R SAUL 225 serosang / L SAUL 40 serosang / NG 15 thin bilious 01/22: pain well controlled, dressing to come down today, SAUL #1 476 ml, SAUL #2 106 ml, NGT 100 ml 01/23: [...] drop Assessment & Plan (02/18/2018 8:30 AM GATHERING WORKER): - hgb of 6.9 02/16, s/p 1U pRBCs with appropriate response to 7.8 - no s/s active bleeding, likely a dilutional drop Bradycardia 11/06/2013 09/06/2022 Asthma 08/15/2012 09/06/2022 Esophagitis, reflux 08/15/2012 09/07/19 23 S/P repair of ventral hernia 09/06/2022 Assessment & Plan (02/18/2018 8:32 AM GATHERING WORKER): S/P VHR on 2018 - continue SAUL to bulb suction, 135 mL output on 02/17 will keep in - ABD to lower transverse abdominal incision Surgical History Surgery Date Site/Laterality Comments HERNIA REPAIR TONSILLECTOMY as child OVARIAN CYST REMOVAL 03/04/1986 - 03/03/1987 LAPAROSCOPIC CHOLECYSTECTOMY 03/04/1990 - 03/03/1991 TUBAL LIGATION 03/04/2012 - 03/03/2013 Bilateral HERNIA REPAIR 03/04/2013 - 03/03/2014 ventral abdomenal wall ABDOMINAL SURGERY VENTRAL HERNIA REPAIR 01/02/2018 - 01/31/2018 Medical History Medical History Date Comments Anemia Asthma GERD (gastroesophageal reflux disease) IBS (irritable bowel syndrome) Migraine Sleep apnea PONV (postoperative nausea a nd vomiting) Delayed emergence from gener al anesthesia did not require intubation o r prolonged intubation or icu care Arthritis Motion sickness Primary hypertension 02/28/2021 Family History Medical History Relation Name Comments Bladder Cancer Brother Family histor y of malignant neoplasm of urinary bladder - (Added by TW Conv) Aneurysm Father Aneurysm - (Add ed by TW Conv) Emphysema Mother Emphysema lung - (Added by TW Conv) Breast cancer Sister 1 Family history of malignant neoplasm of breast - (Added by TW Conv) Uterine cancer Sister 2 Family histor y of malignant neoplasm of uterus - (Added by TW Conv) Diabetes Sister 3 Family history of diabetes mellitus - (Added by TW Conv) Anesthesia problems Neg Hx Relation Name Status Comments Brother Father Mother Sister 1 Sister 2 Sister 3 Social History Tobacco Use Types Packs/Day Years Used Date Smoking Tobacco: Never Smokeless Tobacco: Never Tobacco Cessation:Counseling Given: Not Answered Alcohol Use Standard Drinks/Week Comments Yes 1 (1 standard drink = 0.6 oz pur e alcohol) rare Comments No Sex and Gender Information Value Date Recorded Sex Assigned at Not on file Legal Sex Female 3:53 AM GATHERING WORKER Gender Identity Not on file Sexual Orientation Not on file Obstetrics History Last Filed Vital Signs Vital Sign Reading Time Taken Comments Blood Pressure 151/82 03/31/2024 10:22 AM GATHERING WORKER Pulse 59 03/31/2024 10:22 AM GATHERING WORKER Temperature 36.7 C (98.1 F) 03/31/2024 10:22 AM GATHERING WORKER Respiratory Rate 16 03/31/2024 10:2 2 AM GATHERING WORKER Oxygen Saturation 94% 03/31/2024 10: 22 AM GATHERING WORKER Inhaled Oxygen Concentration - - Weight 140.3 kg (309 lb 3.2 oz) 025 10:22 AM GATHERING WORKER Height 162.6 cm (5' 4) 03/31/2024 10:2 2 AM GATHERING WORKER Body Mass Index 53.07 03/31/2024 10:22 AM GATHERING WORKER Plan of Treatment Health Maintenance Due Date Last Done Comments Cervical Cancer Screening 1966 Colon Cancer Screening-Colonoscopy 1966 Depression Screening 1966 Hepatitis C Screening 1966 DTaP/Tdap/Td Vaccine (1 - Tdap) 1977 Hepatitis B Screening 01/21/1984 Regular Well Visit/Exam 18-64 01/21/1984 Zoster Vaccine (1 of 2) 01/21/2016 Breast Cancer Screening-Mammogram 01/14/2020 01/13/2019, 01/13/2019 Covid-19 Vaccine (4 - 2024-2 5 season) 2023 02/28/2021, 06/06/2020, 05/15/2020 Influenza Vaccine (#1) 2024 Pneumococcal vaccine <65 Aged Out No longer eligible based on patient's age to complete this topic Medical Devices Implanted Type Area Operations Manager Station Device Identifier Shelf Expiration Date Model / Serial / Lot [employer]/C R Bard [id number] Ventralight St Sepra 10x8in Uncoated Monofilament Lightweight - [id number] - [id number] Implanted:Qty: 1 on 2018 by Karan Brown MD at [facility] Mesh N/A: Abdomen [employer] [id number] 12/29/2018 [id number] / [id number] / [id number] Insurance [employer] [facility] [employer] [facility] Advance Directives For more information, please contact: [phone] * Full Code (Latest Code Status on File) Date Activated Date Inactivated Comments 02/14/2018 12:48 PM 02/18/2018 2:29 PM * Full Code Date Activated Date Inactivated Comments 2018 5:37 PM 01/29/2018 6:53 PM Care Teams Data Modeler Relationship Specialty Start Date End Date Tristen Porras MD PCP - General Family Medicine 05/23/22
--- OUTSIDE RECORDS SUMMARY | 2024-09-30 10:09 | XMS_ITS | Encounter Summary ---
Author Organization [facility] Address [address] [place] [address] Phone Care Team Providers Care Lubricating Engineer Name Role Phone Benny Armstrong MD Primary Care Provider Tristen Porras MD Primary Care Provider [phone] Encounter Details Date Type Department Care Team (Late st Contact Info) Description 02/28/2022 Orders Only [facility] Scanning, Provider Social History Tobacco Use Types Packs/Day Years Used Date Smoking Tobacco: Never Smokeless Tobacco: Never Alcohol Use Standard Drinks/Week Comments Yes 1 (1 standard drink = 0.6 oz pur e alcohol) rare Comments No Sex and Gender Information Value Date Recorded Sex Assigned at Not on file Legal Sex Female 3:53 AM IT SUPPORT ANALYST Gender Identity Not on file Sexual Orientation Not on file documented as of this encounter Plan of Treatment Not on file documented as of this encounter Procedures Procedure Name Priority Date/Time Associated Diagnosis Comments SCAN - LABS 02/28/2022 documented in this encounter Results * SCAN - LABS (02/28/2022) us Provider Scanning Final Result documented in this encounter Visit Diagnoses Not on filedocumented in this encounter Care Teams Lubricating Engineer Relationship Specialty Start [place] [address] [place] [address] PCP - General Internal Medicine 04/04/18 05/22/22 [place] [address] [place] [address] PCP - General Family Medicine 05/23/22 documented as of this encounter
[2024-09-30 10:26] LABS: Hematocrit 38.5 % (37.0-47.0); Hemoglobin 13.1 g/dL (12.0-15.0); Mean Corpuscular HGB Conc 34.0 g/dl (32-36); Mean Corpuscular Hemoglobin 32.3 pg (26-34); Mean Corpuscular Volume 95.1 fl (80-100); Platelet Count Result 237 k/mm3 (150-375); Red Blood Count 4.05 M/mm3 (4.2-5.4); White Blood Count 6.3 K/mm3 (4.5-10.0)
[2024-09-30 11:02] LABS: Alanine Aminotransferase 23 U/L (6-35); Albumin Level 4.1 g/dL (3.5-5.1); Alkaline Phosphatase 87 U/L (38-126); Anion Gap 5 mmol/L (4-12); Aspartate Amino Transferase 29 U/L (14-36); Bilirubin,Total 0.8 mg/dL (0.2-1.3); Blood Urea Nitrogen 23 mg/dL (7-17); Calcium 9.5 mg/dL (8.4-10.2); Carbon Dioxide 25 mmol/L (22-30); Chloride 109 mmol/L (98-107); Cholesterol 190 mg/dL (0-200); Estimated Glomerular Filt Rate > 60; Glucose 98 mg/dL (65-110); HDL Direct 44 mg/dL; Potassium 4.2 mmol/L (3.4-5.0); Sodium 139 mmol/L (137-145); Total Protein 6.6 g/dL (6.3-8.2); Triglycerides 90 mg/dL (<150)
[2024-09-30 11:05] LABS: Iron 124 ug/dL (37-170)
[2024-09-30 11:15] LABS: Percent Iron Saturation 41 % (20-50)
[2024-09-30 11:30] LABS: Thyroid Stimulating Hormone 0.519 uIU/mL (0.465-4.680)
[2024-09-30 12:07] LABS: Vitamin B12 > 1000.0 pg/mL (239-931)
== END 2024-09-30 09:45 | disposition home or self-care (01) ==
PROVIDERS: PCP Family Medicine; Visit Provider Nurse Practitioner Family
DX: E78.5 Hyperlipidemia, unspecified (principal); I10 Essential (primary) hypertension; F41.9 Anxiety disorder, unspecified; F32.A Depression, unspecified; E55.9 Vitamin D deficiency, unspecified; E61.1 Iron deficiency
CPT/HCPCS: 36415; 80053; 80061; 82306; 82607; 82746; 83540; 83550; 84443; 85027

== ENCOUNTER 2024-10-09 09:59 | Outpatient (CLI) | payer OTHER, SELFPAY ==
--- OUTSIDE RECORDS SUMMARY | 2024-10-09 10:03 | XMS_ITS | Clinical Summary ---
Author Organization [facility] Address [address] [place] [address] Care Team Providers Care Motorcycle Designer Name Role Phone Tristen Porras MD Primary Care Provider [phone] Allergies Active Allergy Reactions Criticality Noted Date Comments Buprenorphine Hives 08/12/2015 Phenylalanine Headache High 05/29/2021 Migraines Sulfa Antibiotics Hives,Itching Medium 09/09/2017 Sulfasalazine Hives Medium 09/09/2017 Medications cetirizine (ZYRTEC ALLERGY) 10 MG tablet Take 1 tablet by mouth daily. 08/03/19 18 Active B-12, Methylcobalamin, [address] 3,000 mcg under the tongue. Active CPAP MACHINEIndications :Obstructive sleep apnea syndrome Use CPAP as directed, nightly at HS 1 Device 04/02/19 19 Active aspirin 325 MG tablet Take 1 tablet (325 mg total) by mouth daily. 180 tablet 08/20/19 19 Active YUVAFEM 10 MCG vaginal tablet twice a week. 11/18/19 19 Active vitamin D2, ergocalciferol, 37953 UNITS capsule Take 50,000 Units by mouth once a week. 02/14/20 19 Active iron polysacch [id number] 150-0.025-1 MG Cap capsule Take 1 capsule by mouth daily. Active oyster shell calcium 500 mg, elemental, 500 MG tablet Take 1 tablet by mouth daily. Active PANTOPRAZOLE EC 40 MG tabletIndications: Esophagitis, reflux TAKE 1 TABLET DAILY 90 tablet 3 02/21/20 21 Active MONTELUKAST 10 MG tabletIndications: Allergic rhinitis, unspecified seasonality, unspecified trigger TAKE 1 TABLET DAILY 90 tablet 3 02/21/20 21 Active PROAIR HFA 108 (90 Base) MCG/ACT inhalerIndications :Moderate persistent asthma, unspecified whether complicated (HHS/HCC) USE 2 INHALATIONS FOUR TIMES A DAY 25.5 g 3 02/22/20 21 Active CITALOPRAM 20 MG tabletIndications: Depression with anxiety TAKE 1 TABLET DAILY 90 tablet 3 02/21/20 21 Active SUMAtriptan (IMITREX) 100 MG tabletIndications: Intractable migraine without aura and without status migrainosus Take 1 tablet (100 mg total) by mouth as needed for Migraine. May take 1/2 tablet or 1 tablet as needed at onset of migraine-may repeat in 2 hours 27 tablet 2 02/29/20 Active fluticasone (FLOVENT HFA) 110 MCG/ACT inhalerIndications :Moderate persistent asthma, unspecified whether complicated (HHS/HCC) Inhale 1 puff into the lungs 2 (two) times daily. 36 g 02/29/20 21 Active PARoxetine 10 MG tablet Take 10 mg by mouth every morning. Active albuterol (2.5 MG/3ML) 0.083% nebulizer solutionIndication s:Moderate persistent asthma, unspecified whether complicated (HHS/HCC) Take 3 mLs (2.5 mg total) by nebulization every 4 (four) hours. 360 mL 2 03/13/19 22 Active fluticasone propionate 50 MCG/ACT nasal sprayIndications:M oderate persistent asthma, unspecified whether complicated (HHS/HCC) 2 sprays by Nasal route daily. 48 g 1 03/13/19 22 Active DILTIAZEM 60 MG tabletIndications: Intractable headache, unspecified chronicity pattern, unspecified headache type TAKE 1 TABLET THREE TIMES A DAY 270 tablet 2 05/17/19 22 Active ondansetron (ZOFRAN ODT) 4 MG disintegrating tablet Take 1 tablet (4 mg total) by mouth every 8 (eight) hours as needed for Nausea. 15 tablet 05/26/19 22 Active mupirocin 2 % ointment 04/11/19 22 Active metoclopramide 10 MG tabletIndications: Nausea and vomiting, unspecified vomiting type Take One tab up to 4 times per day if needed . 20 tablet 05/30/19 22 Active Active Problems Problem Noted Date Diagnosed Date Foot pain, left 02/28/2021 Primary hypertension 02/28/2021 Chronic arthralgias of knees and hips 09/08/2020 Keratosis 09/08/2020 Primary insomnia 09/08/2020 Menopause 08/13/2018 Deep vein thrombosis (DVT) o f lower extremity, unspecified chronicity, unspecified laterality, unspecified vein ([facility]) 08/13/2018 Hair loss 05/06/2018 Allergic rhinitis 09/09/2017 Hearing deficit 08/02/2017 Depression with anxiety 01/03/2015 Morbid obesity 07/13/2014 Sleep apnea 11/30/2013 Anemia 11/10/2013 Overview (03/10/2018): Last Assessment & Plan: - hgb of 6.9 02/16, s/p 1U pRBCs with appropriate response to 7.8 - no s/s active bleeding, likely a dilutional drop Bradycardia 11/06/2013 Vitamin B12 deficiency 09/11/2012 Asthma ([facility]) 08/15/2012 Esophagitis, reflux 08/15/2012 Irritable bowel syndrome 08/15/2012 Headache, migraine 02/28/2012 Resolved Problems Problem Noted Date Diagnosed Date Resolved Date Acute laryngitis 06/02/2019 08/24/2020 BMI 45.0-49.9, adult 02/06/2019 021 BMI 45.0-49.9, adult 08/13/2018 021 Pain in both lower extremities 05/06/2018 08/13/2018 Bronchitis 04/02/2018 08/13/2018 Flank pain, acute 02/14/2018 08/13/2018 Backache 02/13/2018 08/13/2018 Overview (03/10/2018): Last Assessment & Plan: - suspected UTI & kidney stone -CT kidney stone protocol = findings concerning for pyelonephritis Acute cystitis without hematuria 02/13/2018 03/10/2018 Status post abdominal surgery, follow-up exam 02/06/20 18 08/13/2018 Acute hypoxemic respiratory failure ([facility]) 01/23/2018 08/13/2018 Overview (02/13/2018): Last Assessment & Plan: -weaned from 4 liters to 1 liter today -CXR without pulm edema 01/[address]: Pulmonary embolism in the right middle lobe pulmonary artery. Started on Lovenox BID therapeutic dosing. GEORGE wants her to discharge home on therapeutic Lovenox. Pulmonary embolism (CMS/HCC HHS/HCC) 01/23/2018 08/13/2018 Overview (03/10/2018): Last Assessment & Plan: On therapeutic lovenox. - 01/27: therapeutic anti-Xa Will discharge home on therapeutic Lovenox BID until Dr. Brown feels it is OK to transition to oral anticoagulation. Her PCP office is aware of the PE and she will follow up with her PCP when discharged home. Last Assessment & Plan: Diagnosed on 01/23/[address] chest (previous hospitalization) - continue therapeutic Lovenox Oliguria 01/22/2018 08/13/2018 Overview (02/13/2018): Last Assessment & Plan: Low UOP o/n 01/20: cr 0.6-> 1.10, 500 mL bolus, increase IVF, f/u afternoon BMP 01/21 01/22: recheck BMP, urine electrolytes, flush Velázquez 01/23: IVF decreased due to SOB and possible pulm edema. UOP relatively unchanged. Resolved Health care maintenance 10/13/201205/2021 Immunizations Immunization Administration Dates Next Due Fluzone 6 Months+ Quad (0.5 mL Prefilled Syringe) 03/30/2020(Deferred: Patient Refused) PFIZER COVID-19 (ORIGINAL FO RMULATION, PURPLE CAP) mRNA, LNP-S, PF, 30 MCG/0.3 ML DOSE 02/28/2021,06/06/2020,05/15/2020 Family History Medical History Relation Comments Cancer Brother brain aneurysm Father Hypertension Mother Cancer Sister uterus,breast Relation Status Comments Brother Father Mother Sister Social History Tobacco Use Types Packs/Day Years Used Date Smoking Tobacco: Never Smokeless Tobacco: Never Tobacco Cessation:Counseling Given: No Alcohol Use Standard Drinks/Week Comments Yes 0 (1 standard drink = 0.6 oz pur e alcohol) occasional PHQ-2 Answer Date Recorded PHQ-2 Score - If the patient scores above 3, please move on to questions 3-9 1 05/29/2021 Education Answer Date Recorded What is the highest level of school you have completed or the highest degree you have received? Some college, no degree 02/13/2018 Comments No Sex and Gender Information Value Date Recorded Sex Assigned at Not on file Legal Sex Female 11:36 PM CDT Gender Identity Not on file Sexual Orientation Not on file Last Filed Vital Signs Vital Sign Reading Time Taken Comments Blood Pressure 122/88 05/29/2021 1:38 PM CDT Pulse 52 05/29/2021 1:38 PM CDT Temperature 36.7 C (98 F) 05/29/2021 1:38 PM CDT Respiratory Rate 20 05/29/2021 1:38 PM CDT Oxygen Saturation 95% 05/29/2021 1:38 PM CDT Inhaled Oxygen Concentration - - Weight 133.1 kg (293 lb 6.4 oz) 05/29/2021 1:38 PM CDT Height 162.6 cm (5' 4) 05/29/2021 1:38 PM CDT Body Mass Index 50.36 05/29/2021 1:38 PM CDT Plan of Treatment Health Maintenance Due Date Last Done Comments Annual Physical 1969 Hepatitis C 01/21/1984 DTaP, Tdap and Td Vaccines ( 1 - Tdap) 1985 Hepatitis B Vaccines (1 of 3 - 19+ 3-dose series) 1985 Pneumococcal Vaccine: 50+ Years (1 of 2 - PCV) 1985 Cervical Cancer Screening Pa p with HPV Testing (Age 30 to 64) Every 5 Years 01/21/1996 Zoster Vaccines (1 of 2) 01/21/2016 Cervical Cancer Screening Pa p Smear (Age 30 to 64) Every 3 Years 12/18/2018 12/19/2015 Cervical Cancer Screening wi th HPV 12/18/2018 Mammogram Screening 01/13/2021 01/13/2019, 05/17/2016 COVID-19 Vaccine (2023-2 5 season) 2023 02/28/2021, 06/06/2020, 05/15/2020 PHQ-2 (Physician [place]) 03/04/2024 Colorectal Cancer Screening Colonoscopy (10 Years) 11/17/2028 11/17/2018, , Meningococcal B Vaccine Aged Out No l onger eligible based on patient's age to complete this topic Meningococcal Vaccine Aged Out No trupti gracie eligible based on patient's age to complete this topic RSV Immunizations Under 20 Months Aged Out No longer eligible b ased on patient's age to complete this topic Procedures Procedure Name Priority Date/Time Associated Diagnosis Comments MG SCREENING W SULLY MIRE[place] DIGI Routine 01/13/2019 12:30 PM SUPERVISOR SHUTTLE VENEERING Visit for screening mammogram COLONOSCOPY Routine 11/17/2018 9:31 AM CDT OUTSIDE CYTOPATH CERV/VAG INTERPRET (PAP) (SCAN ORDER) Routine 12/19/2015 12:00 AM CDT from Last 3 Months or Most Recently Relevant to Health Maintenance Results * MG SCREENING W SULLY [place]RE[place] DIGI (01/13/2019 12:30 PM SUPERVISOR SHUTTLE VENEERING) Anatomical Region Laterality Modality Breast Bilateral Mammography 01/13/2019 2:45 PM SUPERVISOR SHUTTLE VENEERING Narrative 01/13/2019 2:46 PM SUPERVISOR SHUTTLE VENEERING EXAMINATION: MG SCREENING W SULL[place]RE[place] DIGI WITH TOMOSYNTHESIS AND COMPUTER-AIDED DETECTION (CAD) DATE: 01/13/2019 12:11 PM COMPARISON STUDIES: 05/02/2016. CLINICAL HISTORY: Encounter for screening mammogram for malignant neoplasm of breast SCREENING family history breast CA: sisters FINDINGS: Bilateral CC, MLO, 2-D and 3-D acquisitions. Fatty replaced residual breast parenchyma. Similar in appearance and distribution to the previous exams. No evidence of dominant mass, architectural distortion, skin thickening, nipple retraction or suspicious clusters of microcalcifications. Benign calcifications redemonstrated. . CONCLUSION: 1. BI-RADS Category 2 - benign findings. Annual screening mammography recommended 2. TISSUE TYPE: Category A - The breasts are almost entirely fatty. MQSA BI-RADS Categories: Category 0 - needs additional imaging evaluation. Category 1 - negative. Category 2 - benign findings. Category 3 - probably benign findings, but short interval follow-up is recommended. Category 4 - suspicious abnormality and biopsy should be considered though the lesion may well be benign. Category 5 - highly suggestive of malignancy and appropriate action should be taken. A) A negative report should not delay a biopsy if a dominant or clinically suspicious mass is present. B) Adenosis and dense breasts may obscure an underlying neoplasm. C) Study interpreted with computer aided detection. Voice recognition software utilized. Interpreted By: Yung Elena, 01/13/2019 2:45 PM us Louise Dudley MD MAMMO Final Res ult * PAP SMEAR (12/19/2015 12:00 AM CDT) 12/19/2015 us Documents Scanned SCANNING [facility] * Colonoscopy ( SUPERVISOR SHUTTLE VENEERING) Narrative [facility] TO EPIC CONVERSION - SUPERVISOR SHUTTLE VENEERING Documented hx of procedure Procedure Note Vadim Chung MD - 01/05/2018 Documented hx of procedure us Generic Conversion Md [facility] GI PROCEDURE ORDERABLES Final Result [facility] TO EPIC CONVERSION from Last 3 Months or Most Recently Relevant to Health Maintenance Insurance [facility] Care Teams Motorcycle Designer Relationship Specialty Start Date End Date Tristen Porras MD [address] [place] [address] PCP - General FAMILY PRACTICE 04/18/22
--- OUTSIDE RECORDS SUMMARY | 2024-10-09 10:03 | XMS_ITS | Clinical Summary ---
Author Organization [facility] Address [address] [place] [id number] Care Team Providers Care Horse Buyer Name Role Phone Tristen Porras MD Primary Care Provider Allergies Active Allergy Reactions Criticality Noted Date [...] 01/23/2018 Assessment & Plan (02/14/2018 12:44 PM SAND MILL GRINDER): Diagnosed on 01/23/[address] chest (previous hospitalization) - continue therapeutic Lovenox Assessment & Plan (01/29/2018 11:06 AM SAND MILL GRINDER): On therapeutic lovenox. - 01/27: therapeutic anti-Xa [...] (06/18/2019): Added automatically from request for surgery [id number] Hair loss 05/06/2018 09/06/2022 Pain in both lower extremities 05/06/2018 09/06/2022 Cellulitis 04/15/2018 09/06/2022 Flank pain, acute 02/14/2018 09/06/2022 Back pain 02/14/2018 09/06/2022 Assessment & Plan (02/18/2018 8:29 AM SAND MILL GRINDER): - suspected UTI & kidney stone -CT kidney stone protocol = findings concerning for pyelonephritis Urinary tract infection 02/14/201808/2022 Assessment & Plan (02/18/2018 8:31 AM SAND MILL GRINDER): Diagnosed by her PCP & started on Cipro, initially on cefepime - UA & urine for culture -> no significant growth Converted to Macrobid x 5 days (total 7 days of antibiotics), WBC 8.0 on discharge & symptoms resolved SOB (shortness of breath) 01/23/2018 Assessment & Plan (01/26/2018 4:50 PM SAND MILL GRINDER): Patient became acutely SOB on the morning of 01/23. Transferred to SICU. Diagnosed with PE. SOB now resolved. -CTM. Okay to transfer to floor Acute hypoxemic respiratory failure 01/23/2018 09/06/2022 Assessment & Plan (01/27/2018 10:47 AM SAND MILL GRINDER): -weaned from 4 liters to 1 liter today -CXR without pulm edema 01/[address]: Pulmonary embolism in the right middle lobe pulmonary artery. Started on Lovenox BID therapeutic dosing. GVB wants her to discharge home on therapeutic Lovenox. Oliguria 01/22/2018 09/06/2022 Assessment & Plan (01/26/2018 4:50 PM SAND MILL GRINDER): Low UOP o/n 01/20: cr 0.6-> 1.10, 500 mL bolus, increase IVF, f/u afternoon BMP 01/21 01/22: recheck BMP, urine electrolytes, flush Velázquez 01/23: IVF decreased due to SOB and possible pulm edema. UOP relatively unchanged. Resolved Acute postoperative pain 01/21/201808/2022 Assessment & Plan (01/29/2018 11:01 AM SAND MILL GRINDER): -Epidural placed 01/20 -Dilaudid WATERSHED COORDINATOR -PO oxycodone, scheduled tylenol Low urine output 01/21/2018 01/22/2018 Assessment & Plan (01/21/2018 9:06 AM SAND MILL GRINDER): Low UOP o/n 01/20: cr 0.6-> 1.10, 500 mL bolus, increase IVF, f/u afternoon BMP 01/21 Allergic rhinitis 09/09/2017 09/06/2022 Hearing deficit 08/02/2017 09/06/2022 Abdominal pain 10/24/2015 09/06/2022 Hernia of anterior abdominal wall 10/24/2015 09/06/2022 Overview (01/21/2018): S/p open ventral hernia repair / panniculectomy (01/20 [facility]) Assessment & Plan (01/29/2018 11:03 AM SAND MILL GRINDER): 01/20: VHR, midline incison. SAUL R x1 [...] drop Assessment & Plan (02/18/2018 8:30 AM SAND MILL GRINDER): - hgb of 6.9 02/16, s/p 1U pRBCs with appropriate response to 7.8 - no s/s active bleeding, likely a dilutional drop Bradycardia 11/06/2013 09/06/2022 Asthma 08/15/2012 09/06/2022 Esophagitis, reflux 08/15/2012 09/07/19 23 S/P repair of ventral hernia 09/06/2022 Assessment & Plan (02/18/2018 8:32 AM SAND MILL GRINDER): S/P VHR on 2018 - continue SAUL [...] on file Legal Sex Female 3:53 AM SAND MILL GRINDER Gender Identity Not on file Sexual Orientation Not on file Obstetrics History Last Filed Vital Signs Vital Sign Reading Time Taken Comments Blood Pressure 151/82 03/31/2024 10:22 AM SAND MILL GRINDER Pulse 59 03/31/2024 10:22 AM SAND MILL GRINDER Temperature 36.7 C (98.1 F) 03/31/2024 10:22 AM SAND MILL GRINDER Respiratory Rate 16 03/31/2024 10:2 2 AM SAND MILL GRINDER Oxygen Saturation 94% 03/31/2024 10: 22 AM SAND MILL GRINDER Inhaled Oxygen Concentration - - Weight 140.3 kg (309 lb 3.2 oz) 025 10:22 AM SAND MILL GRINDER Height 162.6 cm (5' 4) 03/31/2024 10:2 2 AM SAND MILL GRINDER Body Mass Index 53.07 03/31/2024 10:22 AM SAND MILL GRINDER Plan of Treatment Health Maintenance Due Date [...] this topic Medical Devices Implanted Type Area Java Solutions Architect Device Identifier Shelf Expiration Date Model / Serial / Lot [employer]/C R Bard [id number] Ventralight St Sepra 10x8in Uncoated Monofilament Lightweight - [id number] - [id number] Implanted:Qty: 1 on 2018 by Karan Brown MD at [facility] Mesh N/A: Abdomen [employer]/C R Bard [id number] 12/29/2018 [id number] / [id number] / [id number] Insurance [employer] [facility] Fl[employer]omatic [facility] Advance Directives For more information, please contact: [phone] * Full Code (Latest Code Status on File) Date Activated Date Inactivated Comments 02/14/2018 12:48 PM 02/18/2018 2:29 PM * Full Code Date Activated Date Inactivated Comments 2018 5:37 PM 01/29/2018 6:53 PM Care Teams Horse Buyer Relationship Specialty Start Date End Date Tristen Porras MD PCP - General Family Medicine 05/23/22
--- OUTSIDE RECORDS SUMMARY | 2024-10-09 10:03 | XMS_ITS | Encounter Summary ---
Author Organization [facility] Address [address] [place] [address] Care Team Providers Care Greenhouse Manager Name Role Phone Benny Armstrong MD Primary Care Provider U Tristen Garza MD Primary Care Provider [phone] Encounter Details Date Type Department Care Team (Latest Contact Info) Description 09/18/2017 Abstract [facility] , Vadim Call MD Social History Tobacco Use Types Packs/Day Years Used Date Smoking Tobacco: Never Comments Unknown Sex and Gender Information Value Date Recorded Sex Assigned at Not on file Legal Sex Female 11:36 PM CDT Gender Identity Not on file Sexual Orientation Not on file documented as of this encounter Plan of Treatment Not on file documented as of this encounter Visit Diagnoses Not on filedocumented in this encounter Care Teams Greenhouse Manager Relationship Specialty Start Date End Date Benny Armstrong MD PCP - General INTERNAL MEDICINE 02/05/18 04/17/22 Tristen Porras MD [address] [address] PCP - General FAMILY PRACTICE 04/18/22 documented as of this encounter
--- OUTSIDE RECORDS SUMMARY | 2024-10-09 10:03 | XMS_ITS | Encounter Summary ---
Author Organization [facility] Address [address] [place] [address] Care Team Providers Care Air Launch Weapons Technician Name Role Phone Benny Armsrtong MD Primary Care Provider U Tristen Garza MD Primary Care Provider [phone] Encounter Details Date Type Department Care Team (Late st Contact Info) Description 01/19/2019 Results Notification [facility] Multispecialty Care - [facility] [address] [place] [id number] Shahram Bernardo MD [address] [place] [address] Social History Tobacco Use Types Packs/Day Years Used Date Smoking Tobacco: Never Smokeless Tobacco: Never Alcohol Use Standard Drinks/Week Comments Yes 0 (1 standard drink = 0.6 oz pur e alcohol) occasional Education Answer Date Recorded What is the [...] on filedocumented in this encounter Care Teams Air Launch Weapons Technician Relationship Specialty Start Date End Date Benny Armstrong MD PCP - General INTERNAL MEDICINE 02/05/18 04/17/22 Tristen Porras MD [address] [place], [place] [id number] PCP - General FAMILY PRACTICE 04/18/22 documented as of this encounter
--- OUTSIDE RECORDS SUMMARY | 2024-10-09 10:03 | XMS_ITS | Encounter Summary ---
Author Organization [facility] Address [address] [place] [address] Phone Care Team Providers Care Machine Striper Name Role Phone Benny Armstrong MD Primary Care Provider Tristen Porras MD Primary Care Provider [phone] Encounter Details Date Type Department Care Team [...] on file Legal Sex Female 3:53 AM UNIFIED COMMUNICATIONS ENGINEER Gender Identity Not on file Sexual Orientation [...] on filedocumented in this encounter Care Teams Machine Striper Relationship Specialty [place] [address] [place] [address] PCP - General Internal Medicine 04/04/18 05/22/22 [place] [address] [place] [address] PCP - General Family Medicine 05/23/22 documented as of this encounter
--- OUTSIDE RECORDS SUMMARY | 2024-10-09 10:03 | XMS_ITS | Encounter Summary ---
Author Organization [facility] Address [facility] [place] [address] Care Team Providers Care Policy Change Clerk Name Role Phone Benny Armstrong MD Primary Care Provider U Tristen Garza MD Primary Care Provider [phone] Encounter Details Date Type Department Care Team (Late st Contact Info) Description 02/20/2019 HidInImage Message Enc [facility] Family & Internal Medicine [address] [address] Tish Davila, RN Blood work Social History Tobacco Use Types Packs/Day Years Used Date Smoking Tobacco: Never Smokeless Tobacco: Never Alcohol Use Standard Drinks/Week Comments Yes 0 (1 standard drink = 0.6 oz pur e alcohol) occasional PHQ-2 Answer Date Recorded PHQ-2 Score 0 01/28/2019 Education Answer Date Recorded What is the [...] on filedocumented in this encounter Care Teams Policy Change Clerk Relationship Specialty Start Date End Date Benny Armstrong MD PCP - General INTERNAL MEDICINE 02/05/18 04/17/22 Tristen Porras MD [address] [address] PCP - General FAMILY PRACTICE 04/18/22 documented as of this encounter
--- OUTSIDE RECORDS SUMMARY | 2024-10-09 10:03 | XMS_ITS | Encounter Summary ---
Author Organization [facility] Address [address] [place] [address] Phone Care Team Providers Care Bass Viol Repairer Name Role Phone Benny Amrstrong MD Primary Care Provider Tristen Porras MD Primary Care Provider [phone] Encounter Details Date Type Department Care Team [...] on file Legal Sex Female 3:53 AM TAPE CONTROLLED MACHINE STITCHER Gender Identity Not on file Sexual Orientation [...] on filedocumented in this encounter Care Teams Bass Viol Repairer Relationship Specialty [place] [address] [place] [address] PCP - General Internal Medicine 04/04/18 05/22/22 [place] [address] [place] [address] PCP - General Family Medicine 05/23/22 documented as of this encounter
--- OUTSIDE RECORDS SUMMARY | 2024-10-09 10:03 | XMS_ITS | Encounter Summary ---
Author Organization [facility] Address [address] [place] [address] Care Team Providers Care Retail Sales Associate Bilingual Name Role Phone Benny Armstrong MD Primary Care Provider U Tristen Garza MD Primary Care Provider [phone] Encounter Details Date Type Department Care Team (Late st Contact Info) Description 09/20/2020 Operative Mind Message Enc [facility] Family & Internal Medicine [address] [address] [facility], [facility] Provider referral Social History Tobacco Use Types Packs/Day Years Used Date Smoking Tobacco: Never Smokeless Tobacco: Never Alcohol Use Standard Drinks/Week Comments Yes 0 (1 standard drink = 0.6 oz pur e alcohol) occasional PHQ-2 Answer Date Recorded PHQ-2 Score - If the patient scores above 3, please move on to questions 3-9 0 03/30/2020 Education Answer Date Recorded What is the highest level of school you have completed or the highest degree you have received? Some college, no degree 02/13/2018 Comments No Sex and Gender Information Value Date Recorded Sex Assigned at Not on file Legal Sex Female 11:36 PM CDT Gender Identity Not on file Sexual Orientation Not on file COVID-19 Exposure Response Date Recorded In the last month, have you been in contact with someone who was confirmed or suspected to have Coronavirus / COVID-19? No / Unsure 08/24/2020 1:46 PM CDT documented as of this encounter Plan of Treatment Not on file documented as of this encounter Visit Diagnoses Not on filedocumented in this encounter Care Teams Retail Sales Associate Bilingual Relationship Specialty Start Date End Date Benny Armstrong MD PCP - General INTERNAL MEDICINE 02/05/18 04/17/22 Tristen Porras MD [address] [place] [address] PCP - General FAMILY PRACTICE 04/18/22 documented as of this encounter
== END 2024-10-09 10:00 | disposition home or self-care (01) ==
LOC: ANHAUDASC 10:00
PROVIDERS: PCP Family Medicine; Visit Provider Nurse Practitioner Family
DX: Z97.4 Presence of external hearing-aid (principal); H90.3 Sensorineural hearing loss, bilateral
CPT/HCPCS: 92557; 92567

== ENCOUNTER 2024-11-09 13:57 | Outpatient (CLI) | payer OTHER, SELFPAY ==
--- OUTSIDE RECORDS SUMMARY | 2024-11-09 14:01 | XMS_ITS | Clinical Summary ---
Author Organization [facility] Address [address] [place] [address] Care Team Providers Care Painter Barrel Name Role Phone Tristen Porras MD Primary Care Provider [phone] Allergies Active Allergy Reactions Criticality Noted Date [...] times a day. 1 Inhaler 8 Active Additional Information Patient not taking.Reported on 10/30/2024 iron bisgly,ps-FA-B- C#12-succ 65 mg-65 mg -1,000 [...] by mouth once a week 9 Active diclofenac (CATAFLAM) 50 mg tablet Take 1 tablet (50 mg total) by mouth 2 (two) times a day Active busPIRone (BUSPAR) 10 mg tabletIndicatio ns:Generalized Anxiety Disorder Take 1 tablet (10 mg total) by mouth 2 (two) times a day Active albuterol sulfate/budeson costa (AIRSUPRA INHAL) Inhale Active black cohosh 200 mg capsule Take 45 mg by mouth once Active SEMAGLUTIDE, WEIGHT LOSS, SUBQ Inject 1 Units under the skin once a week Active fluticasone propion-salmete roL (ADVAIR DISKUS) 100-50 mcg/dose diskus inhaler Inhale 2 puffs 2 (two) times a day Rinse mouth with water after use. Do not swallow. Active busPIRone (BUSPAR) 10 mg tabletIndicatio ns:Generalized Anxiety Disorder Take 1 tablet (10 mg total) by mouth 3 (three) times a day Active magnesium glycinate 100 mg tablet Take 200 mg by mouth once Active peg 400-propylene glycol (SYSTANE) 0.4-0.3 % ophthalmic solution Administer 1 drop into both eyes as needed Active Active Problems Problem Noted Date Diagnosed Date Primary hypertension 02/28/2021 Primary insomnia 09/08/2020 Deep vein thrombosis (DVT) of lower extremity Menopause 08/13/2018 Pulmonary embolism 01/23/2018 Assessment & Plan (02/14/2018 12:44 PM GELATIN POWDER MIXER): Diagnosed on 01/23/[address] chest (previous hospitalization) - continue therapeutic Lovenox Assessment & Plan (01/29/2018 11:06 AM GELATIN POWDER MIXER): On therapeutic lovenox. - 01/27: therapeutic anti-Xa [...] (06/18/2019): Added automatically from request for surgery [id number] Hair loss 05/06/2018 09/06/2022 Pain in both lower extremities 05/06/2018 09/06/2022 Cellulitis 04/15/2018 09/06/2022 Flank pain, acute 02/14/2018 09/06/2022 Back pain 02/14/2018 09/06/2022 Assessment & Plan (02/18/2018 8:29 AM GELATIN POWDER MIXER): - suspected UTI & kidney stone -CT kidney stone protocol = findings concerning for pyelonephritis Urinary tract infection 02/14/2018 07/08/2022 Assessment & Plan (02/18/2018 8:31 AM GELATIN POWDER MIXER): Diagnosed by her PCP & started on Cipro, initially on cefepime - UA & urine for culture -> no significant growth Converted to Macrobid x 5 days (total 7 days of antibiotics), WBC 8.0 on discharge & symptoms resolved SOB (shortness of breath) 01/23/2018 Assessment & Plan (01/26/2018 4:50 PM GELATIN POWDER MIXER): Patient became acutely SOB on the morning of 01/23. Transferred to SICU. Diagnosed with PE. SOB now resolved. -CTM. Okay to transfer to floor Acute hypoxemic respiratory failure 01/23/2018 09/06/2022 Assessment & Plan (01/27/2018 10:47 AM GELATIN POWDER MIXER): -weaned from 4 liters to 1 liter today -CXR without pulm edema 01/[address]: Pulmonary embolism in the right middle lobe pulmonary artery. Started on Lovenox BID therapeutic dosing. GEORGE wants her to discharge home on therapeutic Lovenox. Oliguria 01/22/2018 09/06/2022 Assessment & Plan (01/26/2018 4:50 PM GELATIN POWDER MIXER): Low UOP o/n 01/20: cr 0.6-> 1.10, 500 mL bolus, increase IVF, f/u afternoon BMP 01/21 01/22: recheck BMP, urine electrolytes, flush Velázquez 01/23: IVF decreased due to SOB and possible pulm edema. UOP relatively unchanged. Resolved Acute postoperative pain 01/21/201808/2022 Assessment & Plan (01/29/2018 11:01 AM GELATIN POWDER MIXER): -Epidural placed 01/20 -Dilaudid LEASING ASSISTANT -PO oxycodone, scheduled tylenol Low urine output 01/21/2018 01/22/2018 Assessment & Plan (01/21/2018 9:06 AM GELATIN POWDER MIXER): Low UOP o/n 01/20: cr 0.6-> 1.10, 500 mL bolus, increase IVF, f/u afternoon BMP 01/21 Allergic rhinitis 09/09/2017 09/06/2022 Hearing deficit 08/02/2017 09/06/2022 Abdominal pain 10/24/2015 09/06/2022 Hernia of anterior abdominal wall 10/24/2015 09/06/2022 Overview (01/21/2018): S/p open ventral hernia repair / panniculectomy (01/20 Stephanie) Assessment & Plan (01/29/2018 11:03 AM GELATIN POWDER MIXER): 01/20: VHR, midline incison. SAUL R x1 [...] Assessment & Plan: - hgb of 6.9 /, s/p 1U pRBCs with appropriate response to 7.8 - no s/s active bleeding, likely a dilutional drop Assessment & Plan (02/18/2018 8:30 AM GELATIN POWDER MIXER): - hgb of 6.9 /16, s/p 1U pRBCs with appropriate response to 7.8 - no s/s active bleeding, likely a dilutional drop Bradycardia 11/06/2013 09/06/2022 Asthma 08/15/2012 09/06/2022 Esophagitis, reflux 08/15/2012 09/07/19 23 S/P repair of ventral hernia 09/06/2022 Assessment & Plan (02/18/2018 8:32 AM GELATIN POWDER MIXER): S/P VHR on 2018 - continue SAUL to bulb suction, 135 mL output on 02/17 will keep in - ABD to lower transverse abdominal incision Encounters Date Type Department Care Team Description 10/30/2024 9:00 AM CDT Office Visit [facility] Medicine Surgery [address] [facility] [address] [place] [address] [place] [address] Karan Brown MD Ventral hernia without obstruction or gangrene (Primary Dx); S/P repair of ventral hernia; Class 3 severe obesity due to excess calories with serious comorbidity in adult, unspecified BMI; Constipation, unspecified constipation type 10/30/2024 7:40 AM CDT - 10/30/2024 11:59 PM CDT Hospital Encounter [facility] [address] [place] [address] Karan Brown MD Ventral hernia without obstruction or gangrene Discharge Disposition: Discharge to home or self care from Last 3 Months Surgical History Surgery Date Site/Laterality Comments HERNIA [...] on file Legal Sex Female 3:53 AM GELATIN POWDER MIXER Gender Identity Not on file Sexual Orientation Not on file Obstetrics History Last Filed Vital Signs Vital Sign Reading Time Taken Comments Blood Pressure 131/84 10/30/2024 8:57 AM CDT Pulse 56 10/30/2024 8:57 AM CDT Temperature 36.7 C (98 F) 10/30/2024 8:57 AM CDT Respiratory Rate 13 10/30/2024 8:57 AM CDT Oxygen Saturation 97% 10/30/2024 8:57 AM CDT Inhaled Oxygen Concentration - - Weight 135.3 kg (298 lb 3.2 oz) 10/30/2024 8:57 AM CDT Height 162.6 cm (5' 4) 10/30/2024 8:57 AM CDT Body Mass Index 51.19 10/30/2024 8:57 AM CDT Plan of Treatment Health Maintenance Due Date Last Done Comments Cervical Cancer Screening 1966 Colon Cancer Screening-Colonoscopy 1966 Depression Screening 1966 Hepatitis C Screening 1966 DTaP/Tdap/Td Vaccine (1 - Tdap) 1977 Hepatitis B Screening 01/21/1984 Regular Well Visit/Exam 18-64 01/21/1984 Pneumococcal vaccine <65 (1 of 2 - PCV) 1985 Zoster Vaccine (1 of 2) 01/21/2016 Breast Cancer Screening-Mammogram 01/14/2020 019, 01/13/2019 Covid-19 Vaccine ( season) 2024 02/28/2021, 06/06/2020, 05/15/2020 Influenza Vaccine (#1) 2024 Medical Devices Implanted Type Area Awning Installer Device Identifier Shelf Expiration Date Model / Serial / Lot [employer] R Bard [id number] Ventralight St Sepra 10x8in Uncoated Monofilament Lightweight - [id number] - [id number] Implanted:Qty: 1 on 2018 by Karan Brown MD at [facility] Mesh N/A: Abdomen [employer] [id number] 12/29/2018 [id number] / [id number] / [id number] Procedures Procedure Name Priority Date/Time Associated Diagnosis Comments CT ABDOMEN PELVIS W CONTRAST Schedule Routine, Read Routine (OP Routine) 10/30/2024 8:51 AM CDT Ventral hernia without obstruction or gangrene from Last 3 Months Results * CT abdomen pelvis with contrast (10/30/2024 8:51 AM CDT) Anatomical Region Laterality Modality Body N/A Computed Tomogra phy 10/30/2024 9:08 AM CDT Impressions 10/30/2024 9:36 AM CDT Unchanged ventral hernia containing a loop of small bowel without evidence of obstruction. Dictated by: Jules Patel M.D. (Ramanan) The radiology attending physician has personally reviewed this study, and had reviewed and/or edited this written report and agrees with it. Electronically signed by: Jamal Marie M.D. Narrative 10/30/2024 9:36 AM CDT EXAMINATION: Computed tomography of the abdomen and pelvis with intravenous contrast HISTORY: 59-year-old female with recurrent abdominal wall hernia. Had a prior ventral hernia repair and panniculectomy in 2019. TECHNIQUE: Transaxial computed tomographic images of the abdomen and pelvis were obtained with intravenous contrast according to the standard protocol after the uneventful administration of 120 mL Opti-Ray 350 intravenous contrast. COMPARISON: 03/31/2024 CT FINDINGS: The imaged lung bases are clear. No pleural effusion. Mild cardiomegaly. No pericardial effusion. Small hiatal hernia. Left Bochdalek hernia. The liver is normal. Postsurgical changes of cholecystectomy. The spleen is normal. The kidneys enhance symmetrically without hydronephrosis. The adrenals are normal. The pancreas is normal. No biliary ductal dilatation. There is contrast material throughout the stomach and small bowels. No pneumoperitoneum. The bladder is distended with fluid. The uterus is present. The small and large bowels are normal in course and caliber. The appendix is present. The origins of the celiac and superior and inferior mesenteric arteries are normal. The portal and splenic veins are patent. No abdominal or pelvic lymphadenopathy. There is a small ventral hernia containing a loop of small bowel without evidence of bowel obstruction (series 2, image 113). The opening of the hernia measures 2.5 cm, not significantly changed from the prior exam. No other ventral hernias are noted. Postsurgical changes of prior ventral hernia repair. Mild multilevel degenerative disc disease. No suspicious osseous lesions. Procedure Note Jamal Marei MD - 10/30/2024 EXAMINATION: Computed tomography of the abdomen and pelvis with intravenous contrast HISTORY: 59-year-old female with recurrent abdominal wall hernia. Had a prior ventral hernia repair and panniculectomy in 2019. TECHNIQUE: Transaxial computed tomographic images of the abdomen and pelvis were obtained with intravenous contrast according to the standard protocol after the uneventful administration of 120 mL Opti-Ray 350 intravenous contrast. COMPARISON: 03/31/2024 CT FINDINGS: The imaged lung bases are clear. No pleural effusion. Mild cardiomegaly. No pericardial effusion. Small hiatal hernia. Left Bochdalek hernia. The liver is normal. Postsurgical changes of cholecystectomy. The spleen is normal. The kidneys enhance symmetrically without hydronephrosis. The adrenals are normal. The pancreas is normal. No biliary ductal dilatation. There is contrast material throughout the stomach and small bowels. No pneumoperitoneum. The bladder is distended with fluid. The uterus is present. The small and large bowels are normal in course and caliber. The appendix is present. The origins of the celiac and superior and inferior mesenteric arteries are normal. The portal and splenic veins are patent. No abdominal or pelvic lymphadenopathy. There is a small ventral hernia containing a loop of small bowel without evidence of bowel obstruction (series 2, image 113). The opening of the hernia measures 2.5 cm, not significantly changed from the prior exam. No other ventral hernias are noted. Postsurgical changes of prior ventral hernia repair. Mild multilevel degenerative disc disease. No suspicious osseous lesions. IMPRESSION: Unchanged ventral hernia containing a loop of small bowel without evidence of obstruction. Dictated by: Jules Patel M.D (Ramanan). The radiology attending physician has personally reviewed this study, and had reviewed and/or edited this written report and agrees with it. Electronically signed by: Jamal Marie M.D. Karan Tony Brown MD IMG CT PROCEDURES Fi nal Result from Last 3 Months Insurance [facility] Advance Directives For more information, please contact: [phone] * Full Code (Latest Code Status on File) Date Activated Date Inactivated Comments 02/14/2018 12:48 PM 02/18/2018 2:29 PM * Full Code Date Activated Date Inactivated Comments 2018 5:37 PM 01/29/2018 6:53 PM Care Teams Painter Barrel Relationship Specialty Start Date End Date Tristen Porras MD PCP - General Family Medicine 05/23/22
--- OUTSIDE RECORDS SUMMARY | 2024-11-09 14:01 | XMS_ITS | Encounter Summary ---
Author Organization [facility] Address [address] [place] [address] Phone Care Team Providers Care Industrial Sales Representative Name Role Phone Benny Armstrong MD Primary Care Provider Tristen Porras MD Primary Care Provider [phone] Encounter Details Date Type Department Care Team [...] on file Legal Sex Female 3:53 AM MANUFACTURING WORKER Gender Identity Not on file Sexual [...] on filedocumented in this encounter Care Teams Industrial Sales Representative Relationship Specialty [place] [address] [place] [address] PCP - General Internal Medicine 04/04/18 05/22/22 [place] [address] [place] [address] PCP - General Family Medicine 05/23/22 documented as of this encounter
--- OUTSIDE RECORDS SUMMARY | 2024-11-09 14:01 | XMS_ITS | Encounter Summary ---
Author Organization [facility] Address [address] [place] [address] Phone Care Team Providers Care Automatic Operator Name Role Phone Benny Armstrong MD Primary Care Provider Tristen Porras MD Primary Care Provider [phone] Encounter Details Date Type Department Care Team [...] on file Legal Sex Female 3:53 AM DRAW IN HAND Gender Identity Not on file Sexual Orientation [...] on filedocumented in this encounter Care Teams Automatic Operator Relationship Specialty [place] [address] [place] [address] PCP - General Internal Medicine 04/04/18 05/22/22 [place] [address] [place] [address] PCP - General Family Medicine 05/23/22 documented as of this encounter
[2024-11-09 14:33] LABS: Hematocrit 39.9 % (37.0-47.0); Hemoglobin 13.3 g/dL (12.0-15.0); Mean Corpuscular HGB Conc 33.3 g/dl (32-36); Mean Corpuscular Hemoglobin 32.4 pg (26-34); Mean Corpuscular Volume 97.1 fl (80-100); Platelet Count Result 255 k/mm3 (150-375); Red Blood Count 4.11 M/mm3 (4.2-5.4); White Blood Count 5.9 K/mm3 (4.5-10.0)
[2024-11-09 16:10] LABS: Vitamin B12 > 1000.0 pg/mL (239-931)
== END 2024-11-09 13:58 | disposition home or self-care (01) ==
LOC: ANHLAB 13:59
PROVIDERS: PCP Family Medicine; Visit Provider Nurse Practitioner Family
DX: R79.89 Other specified abnormal findings of blood chemistry (principal)
CPT/HCPCS: 36415; 82607; 82746; 85027

== ENCOUNTER 2024-11-25 10:37 | Outpatient (CLI) | payer OTHER, SELFPAY ==
--- NOTE | ~2024-11-25 | MM_ITS ---
EXAMINATION: MM screening venus BI w ernesto HISTORY: Screening TECHNIQUE: Craniocaudal and mediolateral oblique 3-D tomosynthesis images were obtained and synthetic 2-D images were generated. CAD analysis was submitted and interpreted. COMPARISON: 11/21/2023 BREAST PARENCHYMAL COMPOSITION: Not Dense: The breasts are almost entirely fatty. FINDINGS: There is no evidence of suspicious mass, calcification, or architectural distortion to suggest malignancy in either breast. [There has been no significant interval change. IMPRESSION: 1. No mammographic evidence of malignancy. Recommend routine screening mammography in one year. BI-RADS Category 1: Negative Reviewed, dictated, and finalized at Location A. Reviewed, dictated and finalized at location Q. IMPRESSION: 1. No mammographic evidence of malignancy. Recommend routine screening mammogra phy in one year. BI-RADS Category 1: Negative
== END 2024-11-25 10:38 | disposition home or self-care (01) ==
LOC: MICIMG 10:39
PROVIDERS: PCP Family Medicine; Visit Provider Family Medicine
DX: Z12.31 Encounter for screening mammogram for malignant neoplasm of breast (principal)
CPT/HCPCS: 77063; 77067

== ENCOUNTER 2024-12-31 13:25 | Outpatient (CLI) | payer OTHER, SELFPAY ==
--- OUTSIDE RECORDS SUMMARY | 2024-12-31 14:05 | XMS_ITS | Encounter Summary ---
Author Organization [facility] Address [address] [place] [address] Phone Care Team Providers Care Logistics Clerk Name Role Phone Benny Armstrong MD Primary Care Provider Tristen Porras MD Primary Care Provider [phone] Encounter Details Date Type Department Care Team [...] on file Legal Sex Female 3:53 AM INSTRUMENT REPAIR SPECIALIST Gender Identity Not on file Sexual Orientation [...] on filedocumented in this encounter Care Teams Logistics Clerk Relationship Specialty [place] [address] [place] [address] PCP - General Internal Medicine 04/04/18 05/22/22 [place] [address] [place] [address] PCP - General Family Medicine 05/23/22 documented as of this encounter
--- OUTSIDE RECORDS SUMMARY | 2024-12-31 14:05 | XMS_ITS | Encounter Summary ---
Author Organization [facility] Address [address] [place] [address] Phone Care Team Providers Care Linen Room Houseperson Name Role Phone Benny Armstrong MD Primary Care Provider Tristen Porras MD Primary Care Provider [phone] Encounter Details Date Type Department Care Team [...] on file Legal Sex Female 3:53 AM SLASHER TENDER Gender Identity Not on file Sexual Orientation [...] on filedocumented in this encounter Care Teams Linen Room Houseperson Relationship Specialty [place] [address] [place] [address] PCP - General Internal Medicine 04/04/18 05/22/22 [place] [address] [place] [address] PCP - General Family Medicine 05/23/22 documented as of this encounter
--- OUTSIDE RECORDS SUMMARY | 2024-12-31 14:05 | XMS_ITS | Clinical Summary ---
Author Organization [facility] Address [address] [place] [id number] Care Team Providers Care Bend Sorter Name Role Phone Tristen Porras MD Primary [...] 01/23/2018 Assessment & Plan (02/14/2018 12:44 PM PUBLIC RELATIONS SENIOR ASSOCIATE): Diagnosed on 01/23/[address] chest (previous hospitalization) - continue therapeutic Lovenox Assessment & Plan (01/29/2018 11:06 AM PUBLIC RELATIONS SENIOR ASSOCIATE): On therapeutic lovenox. - 01/27: therapeutic anti-Xa [...] (06/18/2019): Added automatically from request for surgery [id number] Hair loss 05/06/2018 09/06/2022 Pain in both lower extremities 05/06/2018 09/06/2022 Cellulitis 04/15/2018 09/06/2022 Flank pain, acute 02/14/2018 09/06/2022 Back pain 02/14/2018 09/06/2022 Assessment & Plan (02/18/2018 8:29 AM PUBLIC RELATIONS SENIOR ASSOCIATE): - suspected UTI & kidney stone -CT kidney stone protocol = findings concerning for pyelonephritis Urinary tract infection 02/14/2018 07/08/2022 Assessment & Plan (02/18/2018 8:31 AM PUBLIC RELATIONS SENIOR ASSOCIATE): Diagnosed by her PCP & started on Cipro, initially on cefepime - UA & urine for culture -> no significant growth Converted to Macrobid x 5 days (total 7 days of antibiotics), WBC 8.0 on discharge & symptoms resolved SOB (shortness of breath) 01/23/2018 Assessment & Plan (01/26/2018 4:50 PM PUBLIC RELATIONS SENIOR ASSOCIATE): Patient became acutely SOB on the morning of 01/23. Transferred to SICU. Diagnosed with PE. SOB now resolved. -CTM. Okay to transfer to floor Acute hypoxemic respiratory failure 01/23/2018 09/06/2022 Assessment & Plan (01/27/2018 10:47 AM PUBLIC RELATIONS SENIOR ASSOCIATE): -weaned from 4 liters to 1 liter today -CXR without pulm edema 01/[address]: Pulmonary embolism in the right middle lobe pulmonary artery. Started on Lovenox BID therapeutic dosing. GEORGE wants her to discharge home on therapeutic Lovenox. Oliguria 01/22/2018 09/06/2022 Assessment & Plan (01/26/2018 4:50 PM PUBLIC RELATIONS SENIOR ASSOCIATE): Low UOP o/n 01/20: cr 0.6-> 1.10, 500 mL bolus, increase IVF, f/u afternoon BMP 01/21 01/22: recheck BMP, urine electrolytes, flush Velázquez 01/23: IVF decreased due to SOB and possible pulm edema. UOP relatively unchanged. Resolved Acute postoperative pain 01/21/201808/2022 Assessment & Plan (01/29/2018 11:01 AM PUBLIC RELATIONS SENIOR ASSOCIATE): -Epidural placed 01/20 -Dilaudid [employer] -PO oxycodone, scheduled tylenol Low urine output 01/21/2018 01/22/2018 Assessment & Plan (01/21/2018 9:06 AM PUBLIC RELATIONS SENIOR ASSOCIATE): Low UOP o/n 01/20: cr 0.6-> 1.10, 500 mL bolus, increase IVF, f/u afternoon BMP 01/21 Allergic rhinitis 09/09/2017 09/06/2022 Hearing deficit 08/02/2017 09/06/2022 Abdominal pain 10/24/2015 09/06/2022 Hernia of anterior abdominal wall 10/24/2015 09/06/2022 Overview (01/21/2018): S/p open ventral hernia repair / panniculectomy (01/20 Stephanie) Assessment & Plan (01/29/2018 11:03 AM PUBLIC RELATIONS SENIOR ASSOCIATE): 01/20: VHR, midline incison. SAUL R x1 [...] drop Assessment & Plan (02/18/2018 8:30 AM PUBLIC RELATIONS SENIOR ASSOCIATE): - hgb of 6.9 /16, s/p 1U pRBCs with appropriate response to 7.8 - no s/s active bleeding, likely a dilutional drop Bradycardia 11/06/2013 09/06/2022 Asthma 08/15/2012 09/06/2022 Esophagitis, reflux 08/15/2012 09/07/19 23 S/P repair of ventral hernia 09/06/2022 Assessment & Plan (02/18/2018 8:32 AM PUBLIC RELATIONS SENIOR ASSOCIATE): S/P VHR on 2018 - continue SAUL to bulb suction, 135 mL output on 02/17 will keep in - ABD to lower transverse abdominal incision Encounters Date Type Department Care Team Description 10/30/2024 9:00 AM CDT Office Visit [facility] Medicine Surgery [address] [facility] Advanced Medicine [address]th [place] [address] [place] [address] Karan Brown MD Ventral hernia without obstruction or gangrene (Primary Dx); S/P repair of ventral hernia; Class 3 severe obesity due to excess calories with serious comorbidity in adult, unspecified BMI; Constipation, unspecified constipation type 10/30/2024 7:40 AM CDT - 10/30/2024 11:59 PM CDT Hospital Encounter [facility] [address] [place] [address] Karan Brown MD Ventral hernia without obstruction [...] on file Legal Sex Female 3:53 AM PUBLIC RELATIONS SENIOR ASSOCIATE Gender Identity Not on file Sexual Orientation [...] (#1) 2024 Medical Devices Implanted Type Area [employer] Division Manager Device Identifier Shelf Expiration Date Model / Serial / Lot [employer] [id number] Ventralight St Sepra 10x8in Uncoated Monofilament Lightweight - [id number] - [id number] Implanted:Qty: 1 on 2018 by Karan Brown MD at [facility] Mesh N/A: Abdomen [employer] [id number] 12/29/2018 [id number] / [id number] / [id number] Procedures Procedure Name Priority Date/Time Associated Diagnosis [...] No suspicious osseous lesions. Procedure Note Jamal Marie MD - 10/30/2024 EXAMINATION: Computed tomography of [...] nal Result from Last 3 Months Insurance [facility] Advance Directives For more information, please contact: [phone] * Full Code (Latest Code Status on File) Date Activated Date Inactivated Comments 02/14/2018 12:48 PM 02/18/2018 2:29 PM * Full Code Date Activated Date Inactivated Comments 2018 5:37 PM 01/29/2018 6:53 PM Care Teams Bend Sorter Relationship Specialty Start Date End Date Tristen Porras MD PCP - General Family Medicine 05/23/22
[2024-12-31 15:58] LABS: Vitamin B12 952.0 pg/mL (239-931)
== END 2024-12-31 13:26 | disposition home or self-care (01) ==
LOC: ANHLAB 13:27
PROVIDERS: PCP Family Medicine; Visit Provider Nurse Practitioner Family
DX: R79.89 Other specified abnormal findings of blood chemistry (principal)
CPT/HCPCS: 36415; 82607; 82746

== ENCOUNTER 2025-02-26 09:00 | Outpatient (RCR) | payer SELFPAY | END 2025-03-03 23:59 | disposition home or self-care (01) | LOC: ANHAUDASC 09:00 | PROVIDERS: PCP Obstetrics & Gynecology Gynecology; Visit Provider Nurse Practitioner Family | DX: Z46.1 Encounter for fitting and adjustment of hearing aid (principal) | CPT/HCPCS: 99199; V5261 ==